=== PATIENT | male | born 1955 | race Caucasian/White ===

== ENCOUNTER 2018-10-10 09:58 | Inpatient (IN) | payer MEDICARE, MEDICAID ==
[2018-10-10 10:48] LABS: % BASOPHILS 0.9 % (0.0-2.0); % EOSINOPHILS 1.6 % (0.0-5.0); % LYMPHOCYTES 21.7 % (20.0-50.0); % MONOCYTES 10.9 % (2.0-10.0); % NEUTROPHILS 64.9 % (40.0-80.0); BASOPHILE ABSOLUTE 0.1 Th/cumm (0-0.2); EOSINOPHILE ABSOLUTE 0.1 Th/cmm (0.1-0.4); HEMATOCRIT 43.2 % (41.0-60); HEMOGLOBIN 14.1 gm/dL (12-16); LYMPHOCYTE ABSOLUTE 1.5 Th/cmm (1.5-3.0); MEAN CELL VOLUME 81.3 fl (80-99); MEAN CORPUSCULAR HEMOGLOBIN 26.4 pg (26.0-30.0); MEAN CORPUSCULAR HGB CONC 32.5 pg (28.0-36.0); MEAN PLATELET VOLUME 6.5 fl; MONOCYTE ABSOLUTE 0.8 Th/cmm (0.3-1.0); NEUTROPHILE ABSOLUTE 4.4 Th/cmm (1.8-8.0); PLATELET COUNT 187 Th/cmm (150-400); RED BLOOD COUNT 5.32 Mil/cmm (4.30-5.70); RED CELL DISTRIBUTION WIDTH 15.9 % (11.5-20.0); WHITE BLOOD COUNT 6.9 Th/cmm (4.8-10.8)
[2018-10-10 11:03] LABS: ALB/GLOB RATIO 1.5 (1.0-1.8); ALBUMIN 3.8 gm/dL (4.2-5.5); ALKALINE PHOSPHATASE 91 U/L (34-104); ANION GAP 7.8 (7.0-16.0); BILIRUBIN,TOTAL 0.4 mg/dL (0.3-1.0); BUN - UREA NITROGEN 12 mg/dL (7-25); CALCIUM SERUM 8.8 mg/dL (8.6-10.3); CARBON DIOXIDE 33.7 mEq/L (21.0-31.0); CHLORIDE 84 mEq/L (98-107); CREATININE - SERUM 0.5 mg/dL (0.7-1.3); GFR AFRICAN-AMERICAN > 60.0 ml/min (>90); GFR NON AFRICAN-AMERICAN > 60.0 ml/min; GLUCOSE 111 mg/dL (70-105); POTASSIUM SERUM 4.5 mEq/L (3.5-5.1); SGOT 15 U/L (13-39); SGPT/ALT 12 U/L (7-52); TOTAL PROTEIN,SERUM 6.4 gm/dL (6.0-8.3)
[2018-10-10 11:14] LABS: SODIUM SERUM 121 mEq/L (136-145)
--- NOTE | 2018-10-10 11:48 | ED Physician Chart ---
ED Chief Complaint/HPI - Patient Information Date Seen:: 10/10/18 Time Seen:: 10:41 Chief Complaint:: high blood presssure History of Present Illness:: THIS IS A 63 YO MALE WHO WAS BROUGHT HERE BY EMS FOR TREATMENT AND EVALUATION OF HIS BLOOD PRESSURE. THE STATES THAT HE ALSO HAS A HISTORY OF SEIZURES AND IS ON KEPPER. HE DENIES HEART DISEASE AND DIABETES BUT HAS CHRONIC RIGHT KNEE PAIN. HE ALSO HAS A PROBLEM WITH OBESITY. Allergies:: Allergies Allergy/AdvReac Type Severity Reaction Status Date / Time dextromethorphan Allergy Verified 10/10/18 10:31 Vitals:: Vital Signs - 8 hr 10/10/18 10:31 Temp 98.0 F HR 62 RR 18 BP 137/61 O2 Sat % 91 Historian:: Patient Review:: Nurse's Note Reviewed, Old Chart Reviewed ED Review of Systems - Review of Systems General/Constitutional: No fever, No chills, No weight loss, No weakness, No diaphoresis, No edema, No loss of appetite Skin: No skin lesions, No rash, No bruising Head: No headache, No light-headedness Eyes: No loss of vision, No pain, No diplopia ENT: No earache, No nasal drainage, No sore throat, No tinnitus Neck: No neck pain, No swelling, No thyromegaly, No stiffness, No mass noted Cardio Vascular: No chest pain, No palpitations, No PND, No orthopnea, No edema Pulmonary: No SOB, No cough, No sputum, No wheezing GI: No nausea, No vomiting, No diarrhea, No pain, No melena, No hematochezia, No constipation, No hematemesis G/U: No dysuria, No frequency, No hematuria Musculoskeletal: Bone or joint pain (RIGHT KNEE PAIN), No back pain, No muscle pain Endocrine: No polyuria, No polydipsia Psychiatric: No prior psych history, No depression, No anxiety, No suicidal ideation Hematopoietic: No bruising, No lymphadenopathy Allergic/Immuno: No urticaria, No angioedema Neurological: No syncope, No focal symptoms, No weakness, No paresthesia, No headache, No seizure, No dizziness, No confusion, No vertigo ED Past Medical History - Past Medical History Obtainable: Yes Past Medical History: HTN, Seizures, Arthritis Family History: Heart disease, Diabetes Melitus Social History: Non Smoker, No Alcohol, Illicit Drug Use, Care Facility Surgical History: None Psychiatricy History: None Medication: Reviewed Family Medical History - Family Member Mother History Unknown: Yes Ethnicity: Living Status: Still Living Hx Family Hypertension: Yes Hx Family Diabetes: Yes ED Physical Exam - Physical Examination General/Constitutional: Awake, Well-developed, well-nourished, Alert, No distress, GCS 15, Non-toxic appearing, Ambulatory Other Gen/Cons comments:: OBESITY Head: Atraumatic Eyes: Lids, conjuctiva normal, PERRL, EOMI Skin: Nl inspection, No rash, No skin lesions, No ecchymosis, Well hydrated, No lymphadenopathy ENMT: External ears, nose nl, Nasal exam nl, Lips, teeth, gums nl Neck: Nontender, Full ROM w/o pain, No JVD, No nuchal rigidity, No bruit, No mass, No stridor Respiratory: Nl effort/Exclusion, Clear to Auscultation, No Wheeze/Rhonchi/Rales Cardio Vascular: RRR, No murmur, gallop, rubs, NL S1 S2 GI: No tenderness/rebounding/guarding, No organomegaly, No hernia, Normal BS's, Nondistended, No mass/bruits, No McBurney tenderness : No CVA tenderness Extremities: No tenderness or effusion (RIGHT KNEE IS SWOLLEN AND TENDER WITH 2 + EDEMA), Full ROM, normal strength in all extremities, No edema, Normal digits & nails Neuro/Psych: Alert/oriented, DTR's symmetric, Normal sensory exam, Normal motor strength, Judgement/insight normal, Mood normal, Normal gait, No focal deficits Misc: Normal back, No paraspinal tenderness ED Labs/Radiology/EKG Results - Lab Results Results: Laboratory Tests 10/10/18 10/10/18 10/10/18 10:20 10:20 10:20 WBC 6.9 RBC 5.32 Hgb 14.1 Hct 43.2 MCV 81.3 MCH 26.4 MCHC Differential 32.5 RDW 15.9 Plt Count 187 MPV 6.5 Neutrophils % 64.9 Lymphocytes % 21.7 Monocytes % 10.9 H Eosinophils % 1.6 Basophils % 0.9 Sodium 121 L D Potassium 4.5 Chloride 84 L Carbon Dioxide 33.7 H Anion Gap 7.8 BUN 12 Creatinine 0.5 L Est GFR ( Amer) > 60.0 Est GFR (Non-Af Amer) > 60.0 BUN/Creatinine Ratio 24.0 Glucose 111 H Calcium 8.8 Total Bilirubin 0.4 AST 15 ALT 12 Alkaline Phosphatase 91 Troponin I 0.01 Total Protein 6.4 Albumin 3.8 L Globulin 2.6 Albumin/Globulin Ratio 1.5 Valproic Acid 10/10/18 10:59 WBC RBC Hgb Hct MCV MCH MCHC Differential RDW Plt Count MPV Neutrophils % Lymphocytes % Monocytes % Eosinophils % Basophils % Sodium Potassium Chloride Carbon Dioxide Anion Gap BUN Creatinine Est GFR ( Amer) Est GFR (Non-Af Amer) BUN/Creatinine Ratio Glucose Calcium Total Bilirubin AST ALT Alkaline Phosphatase Troponin I Total Protein Albumin Globulin Albumin/Globulin Ratio Valproic Acid 43.0 L ED Assessment - Assessment General Assessment: HYPERTENSION RIGHT KNEE ARTHRITIS DRUG ABUSE OPIATES ED Septic Shock - . Is Septic Shock (SBP<90, OR Lactate>4 mmol\L) present?: No - <6hrs of presentation: Vital Signs: Vital Signs - 8 hr 10/10/18 10:31 Temp 98.0 F HR 62 RR 18 BP 137/61 O2 Sat % 91 ED Reassessment (Disposition) - Reassessment Reassessment Condition:: Improved - Diagnosis Diagnosis:: DEHYDRATION SEIZURES DISORDER HYPERTENSION CHRONIC RIGHT KNEE PAIN DRUG ABUSE (OPIATES) - Patient Disposition Discharge/Transfer:: Acute Care w/in this hosp Admitting Medical Physician:: Dannie Waldrop Condition at Disposition:: Unchanged
[2018-10-10] MEDS ORDERED: Sodium Chloride 0.9% 1,000 ML IV ONE (12:18)
[2018-10-10] MEDS ORDERED: Magnesium Hydroxide (MOM) 30 mL UDC PO PRN (13:38)
[2018-10-10] MEDS ORDERED: Sodium Chloride 0.9% 1,000 ML IV SCH (13:45)
[2018-10-10] MEDS ORDERED: Pneumococcal Vaccine 0.5 mL Vial IM ONE (15:52)
[2018-10-10] MEDS ORDERED: Sodium Chloride 3% 200 ML IV ONE (19:00)
[2018-10-10] MEDS: Budesonide 0.5 Mg/2 mL Ud HHN SCH (19:08)
[2018-10-10] MEDS: Albuterol/Ipratropium Neb 3 ML AERS HHN SCH (19:08)
[2018-10-10 19:28] LABS: ALLEN TEST Positive
[2018-10-10] MEDS ORDERED: Sodium Chloride 3% 500 ML IV ONE ×2 (19:41→19:42)
--- NOTE | 2018-10-10 20:24 | History & Physical ---
ADMIT DATE: PATIENT IDENTIFICATION: A 63-year-old male. CHIEF COMPLAINT: Altered mental status and elevated blood pressure. HISTORY OF PRESENT ILLNESS: A 63-year-old [place] male resident of [facility] with history of hypertension, obstructive sleep apnea, COPD, chronic pain syndrome and DJD, brought into the Emergency Room for evaluation of elevated blood pressure associated with increasing confusion. The patient was worked up in the Emergency Room and noted to have hyponatremia. The patient is advised to be admitted in the hospital for further treatment. PAST MEDICAL HISTORY: Remarkable for: 1. COPD. 2. Hypertension. 3. Obesity. 4. DJD. 5. Chronic pain syndrome. 6. Obstructive sleep apnea. 7. Psychotic disorder. MEDICATIONS AT HOME: The patient is taking multiple medications, which includes: 1. Cymbalta. 2. Depakote. 3. Tylenol. 4. MS Contin. 5. Percocet. 6. Colace. 7. Carvedilol. 8. Baclofen. 9. Nifedipine 10. Losartan. 12. Trileptal. 13. Flomax. ALLERGIES: THE PATIENT IS ALLERGIC TO DEXTROMETHORPHAN. SOCIAL HISTORY: The patient resides in [facility]. The patient has a history of smoking cigarette. No alcohol or drug use. FAMILY MEDICAL HISTORY: Remarkable for hypertension. REVIEW OF SYSTEMS: The patient denies any chest pain, shortness of breath, palpitations, dizziness, headache, diarrhea, dysuria, hematuria, hematochezia, or melena. The patient is very fatigued and tired. The patient has poor p.o. intake. PHYSICAL EXAMINATION: GENERAL: Alert, awake, lying in the bed. VITAL SIGNS: Temperature 98.6, pulse 63, respiratory rate 18, blood pressure 140/70. HEENT: Normocephalic, atraumatic. Extraocular muscles are intact. Tongue was pink and coated. Poor dentition noted. No oral lesions, no exudate. No sinus tenderness. External auditory canal and tympanic membranes are well visualized. NECK: Supple, no JVD, no hepatojugular reflex. No lymphadenopathy, thyromegaly, or carotid bruit. HEART: Both heart sounds are regular. No S3, no S4. CHEST AND LUNGS: Equal in expansion with expiratory wheezing. ABDOMEN: Soft. No guarding, no rigidity. Liver and spleen not palpable. No palpable mass. EXTREMITIES: No edema. Peripheral pulses are +1. No calf tenderness. NEUROLOGIC: Alert, awake, follows commands. Decreased power throughout the upper and lower extremity. AVAILABLE DIAGNOSTIC DATA: White count of 6.9, hemoglobin of 14.1, platelet count of 187. Potassium 4.5, sodium 121, chloride 84, CO2 of 33.7, BUN and creatinine of 12.9 and 0.5. Uric acid is 3.7, ammonia of 102. Albumin of 3.8. Valproic acid is 43. CLINICAL IMPRESSION: 1. Hyponatremia, most likely from SIADH. 2. Elevated ammonia. 3. Altered mental status secondary to CO2 narcosis and possible medication related. 4. Hypertension. 5. Obesity. 6. Obstructive sleep apnea. 7. Degenerative joint disease. 8. Chronic pain syndrome. 9. Debility. PLAN: 1. Admit this patient to telemetry med/surg floor. 2. Workup for hyponatremia. 3. IV fluid for now. 4. Follow Nephrology recommendation. 5. Lactulose. 6. Appropriate home medicine reconciliation. 7. Pain management. 8. General nursing care. 9. Follow lab. 10. Follow validation consultant recommendation. 11. Care plan reviewed and discussed with staff. JOB# [id number]
--- NOTE | 2018-10-10 23:50 | Consultation ---
DATE OF CONSULTATION: 10/10/2018 PATIENT'S AGE: 63 years. SEX: Male. RACE: . HISTORY OF PRESENT ILLNESS: This patient does have multiple medical problems, which include but not limited to: 1. Morbid obesity. 2. Chronic obstructive pulmonary disease. 3. Sleep apnea. 4. Seizure disorder. 5. The patient had earlier hypertension in the [facility]. At present, the patient has hyponatremia of 121. Try to evaluate the patient and try to wake him up. Could not shook him for about 5 minutes; he seems to be completely out. Discussion with Dr. Waldrop also states that the patient has a chronic pain syndrome and takes significant amount of narcotic medications, which might have been that he may be overdose at present time. The patient's vitals: The patient's breathing at a rate of 12-14-18. The patient's blood pressure 128/80 mmHg, heart rate about 60 per minute. I am afraid that the patient may stop breathing at any time, may happen or may not. We do not have other monitoring device on the regular floor out here. Chemistries evaluated. Hemoglobin 14.1 gram percent. WBC 6.9 thousand, platelet count 187, normal differential. Chemistries reveal sodium of 121, potassium 4.5, chloride 84, CO2 content 33.7, BUN 12, creatinine 0.5, BUN 24, uric acid level 3.7, calcium 8.8, total bilirubin 0.4. Liver enzymes essentially normal, albumin 3.8, globulin 2.6, valproic acid level 43. No screening for the drugs has been done here. Considering that the recommendations have been to: 1. At least 24 hours move to the ICU until he wakes up a little bit. 2. Get an ABG done. 3. A 3% saline 200 mL over 6 hours. Lasix one time only 20 mg IV push. Uric acid level has been already done and repeat his CBC and CMP tomorrow. Once the patient is arousable, then may be more evaluation can be done. Otherwise, the diagnosis remains the same as a history given. JOB# [id number]
[2018-10-11 00:56] LABS: BENZODIAZEPINES QUAL URINE POSITIVE (NEGATIVE); OPIATES (MORPHINE) QUAL. URINE POSITIVE (NEGATIVE)
[2018-10-11 00:57] LABS: AMPHETAMINE URINE NEGATIVE (NEGATIVE); BARBITURATES URINE NEGATIVE (NEGATIVE); CANNABINOID THC NEGATIVE (NEGATIVE); COCAINE METABOLITE QUAL URINE NEGATIVE (NEGATIVE); METHADONE URINE NEGATIVE (NEGATIVE); METHAMPHETAMINES QUAL URINE NEGATIVE (NEGATIVE); PHENCYCLIDINE (PCP) URINE NEGATIVE (NEGATIVE); TRICYCLICS (TCA) QUAL. URINE NEGATIVE (NEGATIVE)
[2018-10-11] MEDS: Albuterol/Ipratropium Neb 3 ML AERS HHN SCH ×4 (01:49→19:27)
[2018-10-11 06:30] LABS: URINE SOURCE CLEAN C
[2018-10-11 06:46] LABS: % BASOPHILS 0.3 % (0.0-2.0); % EOSINOPHILS 0.7 % (0.0-5.0); % LYMPHOCYTES 11.2 % (20.0-50.0); % MONOCYTES 8.7 % (2.0-10.0); % NEUTROPHILS 79.1 % (40.0-80.0); EOSINOPHILE ABSOLUTE 0.1 Th/cmm (0.1-0.4); HEMOGLOBIN 14.2 gm/dL (12-16); LYMPHOCYTE ABSOLUTE 0.9 Th/cmm (1.5-3.0); MEAN CELL VOLUME 81.1 fl (80-99); MEAN CORPUSCULAR HEMOGLOBIN 26.7 pg (26.0-30.0); MEAN CORPUSCULAR HGB CONC 32.9 pg (28.0-36.0); MEAN PLATELET VOLUME 6.6 fl; MONOCYTE ABSOLUTE 0.7 Th/cmm (0.3-1.0); NEUTROPHILE ABSOLUTE 6.5 Th/cmm (1.8-8.0); PLATELET COUNT 169 Th/cmm (150-400); RED CELL DISTRIBUTION WIDTH 16.5 % (11.5-20.0); WHITE BLOOD COUNT 8.2 Th/cmm (4.8-10.8)
[2018-10-11 06:48] LABS: URINE BILIRUBIN NEGATIVE (NEGATIVE); URINE BLOOD NEGATIVE (NEGATIVE); URINE GLUCOSE (UA) NEGATIVE (NEGATIVE); URINE KETONE NEGATIVE (NEGATIVE); URINE LEUKOCYTE ESTERASE NEGATIVE (NEGATIVE); URINE NITRATE NEGATIVE (NEGATIVE); URINE PH 6.5 (4.6 - 8.0); URINE PROTEIN NEGATIVE (NEGATIVE); URINE UROBILINOGEN 0.2 E.U./dL (0.2 - 1.0)
[2018-10-11 06:50] LABS: URINE COLOR PALE YELLOW
[2018-10-11 06:51] LABS: URINE CLARITY CLEAR (CLEAR)
[2018-10-11] MEDS: Budesonide 0.5 Mg/2 mL Ud HHN SCH ×2 (07:11→19:27)
[2018-10-11 07:16] LABS: ALB/GLOB RATIO 1.4 (1.0-1.8); ALBUMIN 3.5 gm/dL (4.2-5.5); ALKALINE PHOSPHATASE 91 U/L (34-104); ANION GAP 8.5 (7.0-16.0); BILIRUBIN,TOTAL 0.3 mg/dL (0.3-1.0); BUN - UREA NITROGEN 9 mg/dL (7-25); CALCIUM SERUM 8.6 mg/dL (8.6-10.3); CARBON DIOXIDE 34.8 mEq/L (21.0-31.0); CHLORIDE 89 mEq/L (98-107); CHOLESTEROL 137 mg/dL (<200); CREATININE - SERUM 0.5 mg/dL (0.7-1.3); GFR AFRICAN-AMERICAN > 60.0 ml/min (>90); GFR NON AFRICAN-AMERICAN > 60.0 ml/min; GLUCOSE 103 mg/dL (70-105); HDL -HIGH DENSITY LIPOPROTEIN 41 mg/dL (23-92); POTASSIUM SERUM 4.3 mEq/L (3.5-5.1); SGOT 12 U/L (13-39); SGPT/ALT 9 U/L (7-52); SODIUM SERUM 128 mEq/L (136-145); TOTAL PROTEIN,SERUM 6.1 gm/dL (6.0-8.3); TRIGLYCERIDES 94 mg/dL (<150); URIC ACID 4.1 mg/dL (4.4-7.6)
[2018-10-11] MEDS: Pantoprazole 40 mg EC Tab PO SCH (07:36)
[2018-10-11 08:26] LABS: pH 7.29 (7.35-7.45)
[2018-10-11 08:27] LABS: ALLEN TEST Y
[2018-10-11] MEDS ORDERED: Influenza Vaccine (5 yr & older) 0.5 ml Syr IM ONE (09:00)
[2018-10-11] MEDS ORDERED: Pneumococcal Vaccine 0.5 mL Vial IM ONE (09:00)
--- NOTE | 2018-10-11 10:04 | Diagnostic Imaging Report ---
Portable chest x-ray Time: 138 History: Allowing for portable technique the heart size enlarged. No focal pulmonary parenchymal processes. No hilar or mediastinal abnormalities. Impression: No acute abnormalities.
[2018-10-11] MEDS ORDERED: Sodium Chloride 0.9% 1,000 ML IV SCH (11:30)
[2018-10-11] MEDS: D5-0.9%NS 1,000 ML IV SCH (12:20)
--- NOTE | 2018-10-11 16:55 | Consultation ---
DATE OF CONSULTATION: 10/11/2018 PULMONARY/CRITICAL CARE CONSULTATION NOTE REASON FOR CONSULTATION: Altered state of mind with shortness of breath, questionable seizure. CONSULT NOTE: This is a 63-year-old gentleman who has been disabled from a chronic back pain as well as a knee joint, has been living in a local convalescent home, requiring to have chronic pain management. The patient was brought in up here with altered state of mind and also shortness of breath. Subsequently, the patient was increasingly confused and subsequently the patient was seen in the Emergency Room where the patient required active treatment because of respiratory/liver problems. Subsequently, the patient was admitted. The patient does smoke, does complain coughing, some wheezing, some chest discomfort, has quit smoking many years ago, but he started back again. Denies of any headache, denied of any shortness of breath, etc. Denied of any pleuritic chest pain or hemoptysis. PAST MEDICAL HISTORY: COPD, hypertension, obesity, chronic pain syndrome, obstructive sleep apnea syndrome, multiple psychiatric illness. MEDICATIONS: Multiple including Cymbalta, Depakote, MS Contin, Percocet, Carvedilol. ALLERGIES: ALLERGIC TO DEXTROMETHORPHAN. PAST SURGICAL HISTORY: Some hernia surgery. PHYSICAL EXAMINATION: GENERAL: This is a heavy set, middle-aged looking gentleman, awake, alert, and oriented, currently trouble talking through the BiPAP, not in respiratory distress on exam. VITAL SIGNS: Temperature is 96.8, blood pressure 116/73. The patient is afebrile, currently on a BiPAP at 55% of oxygen. HEENT: Head is essentially unremarkable. Pupils appear to be equal and reacting to light. Conjunctivae are pink. Sclerae are white. Oral cavity, limited exam, but small oropharyngeal opening. NECK: No nodes in the neck could be palpated. CHEST: Shows scattered wheezing with diminished air entry. HEART: Regular, distant. ABDOMEN: Soft, nontender. EXTREMITIES: Shows no peripheral edema. LABORATORY DATA: Current laboratory studies, white count is 8.2. The patient's ABG shows compensated respiratory acidemia earlier. Subsequently, pCO2 went high this morning with a pO2 of 85 and electrolytes shows sodium is 128 and otherwise essentially unremarkable. Ammonia is 100. IMPRESSION: 1. The patient has acute respiratory failure. 2. Question hepatic failure versus related to the valproic acid. 3. Severe obstructive sleep apnea syndrome. 4. Chronic pain syndrome. PLANS AND SUGGESTIONS: We will go ahead with aggressive respiratory care, inhalation treatment, bronchodilator treatment, inhaled steroid. We will give systemic starting for a few days, question as to we should stop Depakote because of significant elevation of ammonia level. I will discuss with Dr. Waldrop and in the meantime, follow through repeat blood gasses as well as a chest x-ray and go from there. JOB# [id number]
[2018-10-11] MEDS: methylPREDNISolone SS 40 mg Vial IVP SCH (18:27)
[2018-10-11] MEDS: Lactulose 10 Gm/15 mL 30mL UDC PO SCH (20:21)
--- NOTE | 2018-10-11 20:56 | Progress Notes ---
DATE: 10/11/2018 SUBJECTIVE: The patient seen and examined. The patient toe was transferred to ICU for altered mental status. Workup did reveal the patient had CO2 narcosis. The patient was placed on BiPAP and sodium was corrected with 3% sodium chloride drip. The patient is more alert and awake. Ammonia level was reported, which was corrected with lactulose as well. The patient is more alert and awake. The patient currently denies any chest pain, still hypoxic, currently on BiPAP. PHYSICAL EXAMINATION: VITAL SIGNS: Temperature 96.8, pulse 70, respiratory rate is 18, blood pressure 130/58. HEENT: No facial asymmetry. NECK: Supple, no JVD. HEART: Regular. CHEST AND LUNGS: Equal in expansion, expiratory wheezing throughout. ABDOMEN: Soft. No guarding, no rigidity. Liver, spleen palpable. No palpable mass. EXTREMITIES: No edema. NEUROLOGIC: Alert, awake, follows command. CLINICAL IMPRESSION: 1. Altered mental status secondary to metabolic encephalopathy associated with hypoxic encephalopathy. 2. Acute on chronic respiratory failure, currently on BiPAP. 3. Hyponatremia. 4. Elevated ammonia secondary long-term Depakote use. 5. Hypertension. 6. Obesity. 7. Obstructive sleep apnea. 8. Seizure disorder. 9. Chronic pain syndrome. 10. Gastroesophageal reflux disease. LABORATORY DATA: White count of 8.2, hemoglobin 14.2, platelet count of 169, pH of 7.29, pCO2 of 86, pO2 of 85, O2 sat 95%. Sodium 128, potassium 4.3, chloride 89, CO2 34.8, BUN and creatinine is 9 and 0.5, ammonia of 100. Urinalysis is negative. PLAN: 1. The patient was given D5 normal saline at 50 mL an hour. 2. BiPAP. 3. Oxygen. 4. Nebulizer treatment. 5. Lactulose. 6. General nursing care. 7. Critical care nursing. 8. Pulmonary followup. 9. Symptoms management. 10. Medication management. 11. We will follow the consult recommendation. 12. Care plan reviewed and discussed with RN. JOB# [id number]
[2018-10-12] MEDS: methylPREDNISolone SS 40 mg Vial IVP SCH ×5 (01:00→23:21)
[2018-10-12 05:39] LABS: EOSINOPHILE ABSOLUTE 0.3 Th/cmm (0.1-0.4); HEMATOCRIT 42.1 % (41.0-60); HEMOGLOBIN 14.1 gm/dL (12-16); LYMPHOCYTE ABSOLUTE 0.6 Th/cmm (1.5-3.0); MEAN CELL VOLUME 81.7 fl (80-99); MEAN CORPUSCULAR HEMOGLOBIN 27.3 pg (26.0-30.0); MEAN CORPUSCULAR HGB CONC 33.4 pg (28.0-36.0); MEAN PLATELET VOLUME 7.9 fl; MONOCYTE ABSOLUTE 0.1 Th/cmm (0.3-1.0); NEUTROPHILE ABSOLUTE 10.1 Th/cmm (1.8-8.0); PLATELET COUNT 227 Th/cmm (150-400); RED BLOOD COUNT 5.16 Mil/cmm (4.30-5.70); RED CELL DISTRIBUTION WIDTH 16.2 % (11.5-20.0); WHITE BLOOD COUNT 11.1 Th/cmm (4.8-10.8)
[2018-10-12] MEDS: Pantoprazole 40 mg EC Tab PO SCH (06:40)
[2018-10-12] MEDS: Albuterol/Ipratropium Neb 3 ML AERS HHN SCH ×4 (06:57→18:58)
[2018-10-12] MEDS: Budesonide 0.5 Mg/2 mL Ud HHN SCH ×2 (07:13→18:58)
[2018-10-12] MEDS: Lactulose 10 Gm/15 mL 30mL UDC PO SCH ×3 (08:47→20:39)
--- NOTE | 2018-10-12 08:48 | Diagnostic Imaging Report ---
CHEST X-RAY: AP view INDICATION: Abnormal ABG COMPARISON: 10/10/2018 FINDINGS: The exam is limited due to body habitus. Small bilateral effusions are noted. Cardiomegaly is noted. IMPRESSION: Small bilateral pleural effusions. Pneumonia of the left lung base cannot be excluded. Cardiomegaly.
[2018-10-12] MEDS: D5-0.9%NS 1,000 ML IV SCH (08:49)
--- NOTE | 2018-10-12 08:55 | Diagnostic Imaging Report ---
CHEST X-RAY: AP view INDICATION: Shortness of breath COMPARISON: 10/11/2018 FINDINGS: Small bilateral effusions are noted. Cardiomegaly is noted. IMPRESSION: Persistent small bilateral effusions. Pneumonia of the lung bases cannot be excluded. Cardiomegaly.
[2018-10-12 09:25] LABS: ALB/GLOB RATIO 1.4 (1.0-1.8); ALBUMIN 3.7 gm/dL (4.2-5.5); ALKALINE PHOSPHATASE 86 U/L (34-104); BILIRUBIN,TOTAL 0.4 mg/dL (0.3-1.0); BUN - UREA NITROGEN 10 mg/dL (7-25); CALCIUM SERUM 9.2 mg/dL (8.6-10.3); CARBON DIOXIDE 30.5 mEq/L (21.0-31.0); CHLORIDE 91 mEq/L (98-107); CREATININE - SERUM 0.5 mg/dL (0.7-1.3); GFR AFRICAN-AMERICAN > 60.0 ml/min (>90); GFR NON AFRICAN-AMERICAN > 60.0 ml/min; GLUCOSE 121 mg/dL (70-105); POTASSIUM SERUM 4.5 mEq/L (3.5-5.1); SGOT 13 U/L (13-39); SGPT/ALT 9 U/L (7-52); SODIUM SERUM 130 mEq/L (136-145); TOTAL PROTEIN,SERUM 6.4 gm/dL (6.0-8.3)
[2018-10-12 09:39] LABS: BILIRUBIN,DIRECT 0.09 mg/dL (0.0-0.2)
[2018-10-12 09:57] LABS: pH 7.47 (7.35-7.45)
[2018-10-12 09:59] LABS: ALLEN TEST pos
[2018-10-12 10:20] LABS: NEUTROPHILS 91 % (40-80)
[2018-10-12 10:21] LABS: BAND NEUTROPHILE 2 % (0-10); BASOPHIL 0 % (0-3); EOSINOPHIL 0 % (0-5); LYMPHOCYTE 5 % (20-50); MONOCYTE 2 % (2-10)
[2018-10-12] MEDS: Azithromycin 500 MG in Sodium Chloride 0.9% 250 ML IV SCH (10:22)
[2018-10-12] MEDS: Morphine Sulfate 2 mg/mL 1mL Syr IVP PRN (10:51)
--- NOTE | 2018-10-12 14:48 | Consultation ---
DATE OF CONSULTATION: 10/12/2018 PROBLEM LIST: 1. Acute on chronic respiratory failure. 2. Chronic obstructive pulmonary disease. 3. Questionable hepatic ratio and increased ammonia ____ valproic acid. SYMPTOMS: Nil. The patient is feeling much better, offers no specific new symptoms. Currently on a BiPAP. PHYSICAL EXAMINATION: VITAL SIGNS: Temperature is 96.7, blood pressure 150/60, saturation is 96-97 on 40% on BiPAP. NECK: Veins not visualized. CHEST: Shows diminished air entry with occasional rhonchi. HEART: Regular. ABDOMEN: Soft and nontender. EXTREMITIES: Shows slight trace of peripheral edema with some darkness in the left leg. LABORATORY DATA: White count is 11,000, hemoglobin 14.1. The patient's ABG currently shows pCO2 of 48, pO2 is 57, question venous blood on 40% of oxygen and electrolytes are okay with sodium 130 and sugar is 121, ammonia is 64, significantly improved than before. IMPRESSION: The patient has improved respiratory status with acute respiratory failure, etc. PLANS AND SUGGESTIONS: We will try nasal O2 daytime. Continue BiPAP. We will give low dose of diuretics and see how he does in the next 24-48 hours and go from there. JOB# [id number]
--- NOTE | 2018-10-13 03:27 | Progress Notes ---
DATE: 10/12/2018 SUBJECTIVE: The patient seen and examined. The patient is lying in the bed. The patient is more alert and awake. The patient stated that he has polydipsia and polyuria. OBJECTIVE: GENERAL: The patient otherwise denies any chest pain or shortness of breath, currently on BiPAP. VITAL SIGNS: Temperature 97.7, pulse is 90, respiratory rate is 18, blood pressure 160/82. HEENT: No facial asymmetry. NECK: Supple, no JVD. HEART: Regular. CHEST: Lung equal in expansion, no expiratory wheezing. ABDOMEN: Soft. No guarding or rigidity. Bowel sounds present. No palpable mass. EXTREMITIES: No edema. AVAILABLE DIAGNOSTIC DATA: White count of 11.1, hemoglobin 14.1, platelet count 227. Sodium 130, potassium 4.5, chloride 91, CO2 of 30.5, BUN and creatinine is 10 and 0.5, ammonia of 64, ALT/AST is 9 and 30 respectively. Chest x-ray, bilateral infiltrate. CLINICAL IMPRESSION: 1. Acute on chronic respiratory failure, currently on BiPAP. 2. Bilateral pneumonia. 3. Altered mental status secondary metabolic and hypoxic encephalopathy. 4. Hyponatremia, improved. 5. Degenerative joint disease. 6. Obesity. 7. Chronic pain syndrome. 8. Elevated ammonia level, improving as well. 9. Seizure disorder. PLAN: 1. Add Zithromax. 2. Oxygen. 3. BiPAP. 4. Nebulizer treatment. 5. IV steroid. 6. IV fluid. 7. General nursing care. 8. Cardiac monitoring. 9. Follow lab. 10. Follow consult recommendation. 11. Care plan will be discussed with staff. JOB# [id number]
[2018-10-13 05:12] LABS: % BASOPHILS 0.2 % (0.0-2.0); % EOSINOPHILS 0.4 % (0.0-5.0); % LYMPHOCYTES 9.8 % (20.0-50.0); % MONOCYTES 5.2 % (2.0-10.0); % NEUTROPHILS 84.4 % (40.0-80.0); HEMATOCRIT 41.5 % (41.0-60); HEMOGLOBIN 13.3 gm/dL (12-16); LYMPHOCYTE ABSOLUTE 1.2 Th/cmm (1.5-3.0); MEAN CELL VOLUME 82.1 fl (80-99); MEAN CORPUSCULAR HEMOGLOBIN 26.4 pg (26.0-30.0); MEAN CORPUSCULAR HGB CONC 32.1 pg (28.0-36.0); MEAN PLATELET VOLUME 7.1 fl; MONOCYTE ABSOLUTE 0.6 Th/cmm (0.3-1.0); NEUTROPHILE ABSOLUTE 10.5 Th/cmm (1.8-8.0); PLATELET COUNT 221 Th/cmm (150-400); RED BLOOD COUNT 5.05 Mil/cmm (4.30-5.70); RED CELL DISTRIBUTION WIDTH 16.3 % (11.5-20.0); WHITE BLOOD COUNT 12.3 Th/cmm (4.8-10.8)
[2018-10-13 06:14] LABS: ALB/GLOB RATIO 1.4 (1.0-1.8); ALBUMIN 3.5 gm/dL (4.2-5.5); ALKALINE PHOSPHATASE 79 U/L (34-104); ANION GAP 13.1 (7.0-16.0); BILIRUBIN,TOTAL 0.3 mg/dL (0.3-1.0); BUN - UREA NITROGEN 17 mg/dL (7-25); CALCIUM SERUM 9.2 mg/dL (8.6-10.3); CARBON DIOXIDE 30.6 mEq/L (21.0-31.0); CHLORIDE 91 mEq/L (98-107); CREATININE - SERUM 0.6 mg/dL (0.7-1.3); GFR AFRICAN-AMERICAN > 60.0 ml/min (>90); GFR NON AFRICAN-AMERICAN > 60.0 ml/min; GLUCOSE 147 mg/dL (70-105); POTASSIUM SERUM 3.7 mEq/L (3.5-5.1); SGOT 11 U/L (13-39); SGPT/ALT 10 U/L (7-52); SODIUM SERUM 131 mEq/L (136-145); TOTAL PROTEIN,SERUM 6.1 gm/dL (6.0-8.3)
[2018-10-13 06:18] LABS: BILIRUBIN,DIRECT 0.06 mg/dL (0.0-0.2)
[2018-10-13] MEDS: Pantoprazole 40 mg EC Tab PO SCH (06:34)
[2018-10-13] MEDS: methylPREDNISolone SS 40 mg Vial IVP SCH ×3 (06:35→17:51)
[2018-10-13] MEDS: Albuterol/Ipratropium Neb 3 ML AERS HHN SCH ×4 (07:29→19:06)
[2018-10-13] MEDS: Budesonide 0.5 Mg/2 mL Ud HHN SCH ×2 (07:29→19:06)
[2018-10-13] MEDS: Lactulose 10 Gm/15 mL 30mL UDC PO SCH ×3 (08:17→20:28)
[2018-10-13] MEDS: Guaifenesin DM 10 ML UDC PO PRN ×3 (08:37→20:30)
[2018-10-13 10:12] LABS: ALLEN TEST Positive; pH 7.47 (7.35-7.45)
[2018-10-13] MEDS: Azithromycin 500 MG in Sodium Chloride 0.9% 250 ML IV SCH (10:21)
--- NOTE | 2018-10-13 13:46 | General Progress Note ---
Subjective - Review of Systems Service Date: 10/13/18 Subjective: alert, verbal, not in distress Objective - Results Result Diagrams: 10/13/18 04:25 10/13/18 04:25 Recent Labs: Laboratory Last Values WBC 12.3 Th/cmm (4.8-10.8) H 10/13/18 04:25 RBC 5.05 Mil/cmm (4.30-5.70) 10/13/18 04:25 Hgb 13.3 gm/dL (12-16) 10/13/18 04:25 Hct 41.5 % (41.0-60) 10/13/18 04:25 MCV 82.1 fl (80-99) 10/13/18 04:25 MCH 26.4 pg (26.0-30.0) 10/13/18 04:25 MCHC Differential 32.1 pg (28.0-36.0) 10/13/18 04:25 RDW 16.3 % (11.5-20.0) 10/13/18 04:25 Plt Count 221 Th/cmm (150-400) 10/13/18 04:25 MPV 7.1 fl 10/13/18 04:25 Add Manual Diff YES 10/12/18 04:05 Neutrophils % 84.4 % (40.0-80.0) H 10/13/18 04:25 Band Neutrophils % 2 % (0-10) 10/12/18 04:05 Lymphocytes % 9.8 % (20.0-50.0) L 10/13/18 04:25 Monocytes % 5.2 % (2.0-10.0) 10/13/18 04:25 Eosinophils % 0.4 % (0.0-5.0) 10/13/18 04:25 Basophils % 0.2 % (0.0-2.0) 10/13/18 04:25 Neutrophils (Manual) 91 % (40-80) H 10/12/18 04:05 Lymphocytes 5 % (20-50) L 10/12/18 04:05 Monocytes 2 % (2-10) 10/12/18 04:05 Eosinophils 0 % (0-5) 10/12/18 04:05 Basophils 0 % (0-3) 10/12/18 04:05 Specimen Source Arterial 10/13/18 09:57 Sample Site Right Radial 10/13/18 09:57 pH 7.47 (7.35-7.45) H 10/13/18 09:57 pCO2 51.0 mmHg (35.0-45.0) H 10/13/18 09:57 pO2 62.0 mmHg (80.0-100.0) L 10/13/18 09:57 HCO3 33.9 mEq/L (20.0-26.0) H 10/13/18 09:57 Base Excess 11.6 mEq/L (-3.0-3.0) H 10/13/18 09:57 O2 Saturation 93.0 % (92.0-100.0) 10/13/18 09:57 Mahesh Test Positive 10/13/18 09:57 Vent Rate NA 10/13/18 09:57 Inspired O2 36 10/13/18 09:57 Tidal Volume NA 10/13/18 09:57 PEEP NA 10/13/18 09:57 Pressure (ins/psv/peep) NA 10/13/18 09:57 Critical Value LZHANG 10/13/18 09:57 Sodium 131 mEq/L (136-145) L 10/13/18 04:25 Potassium 3.7 mEq/L (3.5-5.1) 10/13/18 04:25 Chloride 91 mEq/L (98-107) L 10/13/18 04:25 Carbon Dioxide 30.6 mEq/L (21.0-31.0) 10/13/18 04:25 Anion Gap 13.1 (7.0-16.0) 10/13/18 04:25 BUN 17 mg/dL (7-25) 10/13/18 04:25 Creatinine 0.6 mg/dL (0.7-1.3) L 10/13/18 04:25 Est GFR ( Amer) > 60.0 ml/min (>90) 10/13/18 04:25 Est GFR (Non-Af Amer) > 60.0 ml/min 10/13/18 04:25 BUN/Creatinine Ratio 28.3 10/13/18 04:25 Glucose 147 mg/dL (70-105) H 10/13/18 04:25 Uric Acid 4.1 mg/dL (4.4-7.6) L 10/11/18 06:31 Calcium 9.2 mg/dL (8.6-10.3) 10/13/18 04:25 Magnesium 2.0 mg/dL (1.9-2.7) 10/12/18 04:05 Total Bilirubin 0.3 mg/dL (0.3-1.0) 10/13/18 04:25 Direct Bilirubin 0.06 mg/dL (0.0-0.2) 10/13/18 04:25 AST 11 U/L (13-39) L 10/13/18 04:25 ALT 10 U/L (7-52) 10/13/18 04:25 Alkaline Phosphatase 79 U/L (34-104) 10/13/18 04:25 Ammonia 64 umol/L (16-53) H 10/12/18 04:05 Troponin I 0.01 ng/mL (0.01-0.05) 10/10/18 10:20 Total Protein 6.1 gm/dL (6.0-8.3) 10/13/18 04:25 Albumin 3.5 gm/dL (4.2-5.5) L 10/13/18 04:25 Globulin 2.6 gm/dL 10/13/18 04:25 Albumin/Globulin Ratio 1.4 (1.0-1.8) 10/13/18 04:25 Triglycerides 94 mg/dL (<150) 10/11/18 06:31 Cholesterol 137 mg/dL (<200) 10/11/18 06:31 LDL Cholesterol Direct 87 mg/dL (75-193) 10/11/18 06:31 HDL Cholesterol 41 mg/dL (23-92) 10/11/18 06:31 TSH 0.56 uIU/ml (0.34-5.60) 10/10/18 10:20 Urine Source CLEAN C 10/11/18 06:28 Urine Color PALE YELLOW 10/11/18 06:28 Urine Clarity CLEAR (CLEAR) 10/11/18 06:28 Urine pH 6.5 (4.6 - 8.0) 10/11/18 06:28 Ur Specific [place] 1.010 (1.005-1.030) 10/11/18 06:28 Urine Protein NEGATIVE mg/dL (NEGATIVE) 10/11/18 06:28 Urine Glucose (UA) NEGATIVE mg/dL (NEGATIVE) 10/11/18 06:28 Urine Ketones NEGATIVE mg/dL (NEGATIVE) 10/11/18 06:28 Urine Blood NEGATIVE (NEGATIVE) 10/11/18 06:28 Urine Nitrate NEGATIVE (NEGATIVE) 10/11/18 06:28 Urine Bilirubin NEGATIVE (NEGATIVE) 10/11/18 06:28 Urine Urobilinogen 0.2 E.U./dL (0.2 - 1.0) 10/11/18 06:28 Ur Leukocyte Esterase NEGATIVE (NEGATIVE) 10/11/18 06:28 Ur Random Sodium 64 mmol/L 10/11/18 00:10 Urine Creatinine 26.0 mg/dl (39.0-259.0) L 10/11/18 00:10 Urine Opiates Screen POSITIVE (NEGATIVE) H 10/11/18 00:10 Urine Methadone Screen NEGATIVE (NEGATIVE) 10/11/18 00:10 Ur Barbiturates Screen NEGATIVE (NEGATIVE) 10/11/18 00:10 Valproic Acid 43.0 ug/mL (50.0-100.0) L 10/10/18 10:59 Ur Tricyclics Screen NEGATIVE (NEGATIVE) 10/11/18 00:10 Ur Phencyclidine Scrn NEGATIVE (NEGATIVE) 10/11/18 00:10 Amphetamines Screen NEGATIVE (NEGATIVE) 10/11/18 00:10 U Methamphetamines Scrn NEGATIVE (NEGATIVE) 10/11/18 00:10 U Benzodiazepines Scrn POSITIVE (NEGATIVE) H 10/11/18 00:10 U Cocaine Metab Screen NEGATIVE (NEGATIVE) 10/11/18 00:10 U Cannabinoids Screen NEGATIVE (NEGATIVE) 10/11/18 00:10 RPR NONREACTIVE (NONREACTIVE) 10/10/18 10:20 - Physical Exam Vitals and I&O: Vital Signs Temp 97.5 F 10/13/18 13:00 Pulse 21 10/13/18 13:00 Resp 84 10/13/18 13:00 BP 125/53 10/13/18 13:00 Pulse Ox 93 10/13/18 13:00 Intake & Output 10/12/18 10/13/18 12 18:59 06:59 18:59 Intake Total 5350 800 250 Output Total 3000 Balance 2350 800 250 Weight (lbs) 124.936 kg 124.965 kg Intake: Intake, IV Amount 1250 250 Azithromycin 500 mg In 250 250 Sodium Chloride 0.9% 250 ml @ 250 mls/hr IV Q24HR [facility] Rx#:[id number] D5-0.9%Ns 1,000 ml @ 50 1000 mls/hr IV .Q20H [facility] Rx#: [id number] Oral 4100 800 Output: Urine 3000 Other: # Voids 5 # Bowel Movements 0 6 Stool Characteristics Soft Soft Brown Brown Weight Source Bedscale Bedscale Active Medications: Current Medications Acetaminophen (Tylenol) 650 mg PO Q4H PRN PRN Reason: Mild Pain/Headache/T above 101 Stop: 12/09/18 13:37 Last Admin: 10/12/18 20:38 Dose: 650 mg Albuterol/Ipratropium (Duoneb Neb) 3 ml HHN [id number] [facility] Stop: 12/10/18 18:59 Last Admin: 10/13/18 10:22 Dose: 3 ml Baclofen (Lioresal) 10 mg PO TID [facility] Stop: 12/09/18 13:59 Last Admin: 10/13/18 13:08 Dose: 10 mg Budesonide (Pulmicort) 0.5 mg HHN BIDRT [facility] Stop: 12/10/18 18:59 Last Admin: 10/13/18 07:29 Dose: 0.5 mg Carvedilol (Coreg) 6.25 mg PO BID [facility] Stop: 12/09/18 16:59 Last Admin: 10/13/18 08:16 Dose: 6.25 mg Divalproex Sodium (Depakote Dr) 250 mg PO Q12H [facility]; Protocol Stop: 12/09/18 13:44 Last Admin: 10/13/18 13:08 Dose: 250 mg Docusate Sodium (Colace) 250 mg PO BID [facility] Stop: 12/09/18 16:59 Last Admin: 10/13/18 08:16 Dose: Not Given Duloxetine HCl (Cymbalta) 60 mg PO DAILY [facility] Stop: 12/10/18 08:59 Last Admin: 10/13/18 08:15 Dose: 60 mg Furosemide (Lasix) 40 mg IVP BID [facility] Stop: 12/11/18 16:59 Last Admin: 10/13/18 08:16 Dose: 40 mg Guaifenesin/Dextromethorphan (Robitussin Dm) 10 ml PO Q6HR PRN PRN Reason: Cough Stop: 12/11/18 18:03 Last Admin: 10/13/18 08:37 Dose: 10 ml Dextrose/Sodium Chloride (D5-0.9%Ns) 1,000 mls @ 50 mls/hr IV .Q20H [facility] Stop: 12/10/18 12:03 Last Admin: 10/12/18 08:49 Dose: 50 mls/hr Azithromycin 500 mg/ Sodium (Chloride) 250 mls @ 250 mls/hr IV Q24HR [facility] Stop: 12/11/18 10:59 Last Infusion: 10/13/18 11:25 Dose: Infused Lactulose (Cephulac) 30 gm PO TID [facility] Stop: 12/10/18 20:59 Last Admin: 10/13/18 13:09 Dose: 30 gm Latanoprost (Xalatan 0.005% Ophth Soln) 1 drop EACH EYE HS [facility] Stop: 12/09/18 20:59 Last Admin: 10/12/18 20:55 Dose: 1 drop Levetiracetam (Keppra) 1,000 mg PO BID [facility] Stop: 12/09/18 16:59 Last Admin: 10/13/18 08:16 Dose: 1,000 mg Losartan Potassium (Cozaar) 100 mg PO DAILY [facility] Stop: 12/09/18 13:59 Last Admin: 10/13/18 08:15 Dose: 100 mg Magnesium Hydroxide (Milk Of Magnesia) 30 ml PO HS PRN PRN Reason: Constipation Stop: 12/09/18 13:37 Methylprednisolone Sodium Succinate (Solu-Medrol) 40 mg IVP Q6HR [facility] Stop: 10/14/18 12:01 Last Admin: 10/13/18 11:13 Dose: 40 mg Morphine Sulfate (Morphine) 2 mg IVP Q4H PRN PRN Reason: Severe Pain Stop: 12/09/18 13:37 Last Admin: 10/12/18 10:51 Dose: 2 mg Morphine Sulfate (Ms-Contin) 30 mg PO BID@0000,1200 [facility] Stop: 12/10/18 00:00 Last Admin: 10/13/18 11:13 Dose: 30 mg Ondansetron HCl (Zofran) 4 mg IVP Q6H PRN PRN Reason: Nausea / Vomiting Stop: 12/09/18 13:37 Oxcarbazepine (Trileptal) 300 mg PO BID [facility]; Protocol Stop: 12/09/18 16:59 Last Admin: 10/13/18 08:15 Dose: 300 mg Pantoprazole Sodium (Protonix) 40 mg PO QDAC [facility] Stop: 12/10/18 07:29 Last Admin: 10/13/18 06:34 Dose: 40 mg Tamsulosin HCl (Flomax) 0.4 mg PO DAILY [facility] Stop: 12/09/18 13:44 Last Admin: 10/13/18 08:15 Dose: 0.4 mg General: Alert, No acute distress HEENT: Atraumatic, Mucous membr. 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 ALOC 2/2 Hyperammonemia, Pain/epileptic meds, C02 Narcosis Hypercapneic resp failure 2/2 COPD, meds, OHS/MARCE Morbid Obesity Epilepsy Chronic Pain Sx - Plan Plan: Lab - Result Diagrams 10/13/18 04:25 10/13/18 04:25 Current Medications Acetaminophen (Tylenol) 650 mg PO Q4H PRN PRN Reason: Mild Pain/Headache/T above 101 Stop: 12/09/18 13:37 Last Admin: 10/12/18 20:38 Dose: 650 mg Albuterol/Ipratropium (Duoneb Neb) 3 ml HHN [id number] [facility] Stop: 12/10/18 18:59 Last Admin: 10/13/18 10:22 Dose: 3 ml Baclofen (Lioresal) 10 mg PO TID [facility] Stop: 12/09/18 13:59 Last Admin: 10/13/18 13:08 Dose: 10 mg Budesonide (Pulmicort) 0.5 mg HHN BIDRT [facility] Stop: 12/10/18 18:59 Last Admin: 10/13/18 07:29 Dose: 0.5 mg Carvedilol (Coreg) 6.25 mg PO BID [facility] Stop: 12/09/18 16:59 Last Admin: 10/13/18 08:16 Dose: 6.25 mg Divalproex Sodium (Depakote Dr) 250 mg PO Q12H [facility]; Protocol Stop: 12/09/18 13:44 Last Admin: 10/13/18 13:08 Dose: 250 mg Docusate Sodium (Colace) 250 mg PO BID [facility] Stop: 12/09/18 16:59 Last Admin: 10/13/18 08:16 Dose: Not Given Duloxetine HCl (Cymbalta) 60 mg PO DAILY [facility] Stop: 12/10/18 08:59 Last Admin: 10/13/18 08:15 Dose: 60 mg Furosemide (Lasix) 40 mg IVP BID [facility] Stop: 12/11/18 16:59 Last Admin: 10/13/18 08:16 Dose: 40 mg Guaifenesin/Dextromethorphan (Robitussin Dm) 10 ml PO Q6HR PRN PRN Reason: Cough Stop: 12/11/18 18:03 Last Admin: 10/13/18 08:37 Dose: 10 ml Dextrose/Sodium Chloride (D5-0.9%Ns) 1,000 mls @ 50 mls/hr IV .Q20H [facility] Stop: 12/10/18 12:03 Last Admin: 10/12/18 08:49 Dose: 50 mls/hr Azithromycin 500 mg/ Sodium (Chloride) 250 mls @ 250 mls/hr IV Q24HR [facility] Stop: 12/11/18 10:59 Last Infusion: 10/13/18 11:25 Dose: Infused Lactulose (Cephulac) 30 gm PO TID [facility] Stop: 12/10/18 20:59 Last Admin: 10/13/18 13:09 Dose: 30 gm Latanoprost (Xalatan 0.005% Oph Soln) 1 drop EACH EYE HS [facility] Stop: 12/09/18 20:59 Last Admin: 10/12/18 20:55 Dose: 1 drop Levetiracetam (Keppra) 1,000 mg PO BID [facility] Stop: 12/09/18 16:59 Last Admin: 10/13/18 08:16 Dose: 1,000 mg Losartan Potassium (Cozaar) 100 mg PO DAILY [facility] Stop: 12/09/18 13:59 Last Admin: 10/13/18 08:15 Dose: 100 mg Magnesium Hydroxide (Milk Of Magnesia) 30 ml PO HS PRN PRN Reason: Constipation Stop: 12/09/18 13:37 Methylprednisolone Sodium Succinate (Solu-Medrol) 40 mg IVP Q6HR [facility] Stop: 10/14/18 12:01 Last Admin: 10/13/18 11:13 Dose: 40 mg Morphine Sulfate (Morphine) 2 mg IVP Q4H PRN PRN Reason: Severe Pain Stop: 12/09/18 13:37 Last Admin: 10/12/18 10:51 Dose: 2 mg Morphine Sulfate (Ms-Contin) 30 mg PO BID@0000,1200 [facility] Stop: 12/10/18 00:00 Last Admin: 10/13/18 11:13 Dose: 30 mg Ondansetron HCl (Zofran) 4 mg IVP Q6H PRN PRN Reason: Nausea / Vomiting Stop: 12/09/18 13:37 Oxcarbazepine (Trileptal) 300 mg PO BID [facility]; Protocol Stop: 12/09/18 16:59 Last Admin: 10/13/18 08:15 Dose: 300 mg Pantoprazole Sodium (Protonix) 40 mg PO QDAC [facility] Stop: 12/10/18 07:29 Last Admin: 10/13/18 06:34 Dose: 40 mg Tamsulosin HCl (Flomax) 0.4 mg PO DAILY [facility] Stop: 12/09/18 13:44 Last Admin: 10/13/18 08:15 Dose: 0.4 mg Lab - Result Diagrams 10/13/18 04:25 10/13/18 04:25 Na up to 131 DC Lasix, IVF, fluid restrictions CXR CM, min B/L effusions consider DC Oxcarbazepine (Carbamazepine) f/u electrolytes Nutritional Asmnt/Malnutr-PDOC - Dietary Evaluation Malnutrition Findings (Please click <Entered> for more info): Nutritional Asmnt/Malnutrition Start: 10/12/18 16: 40 Text: Status: Complete Freq: Protocol: Document 10/12/18 16:41 DAMON (Rec: 10/12/18 17:03 [email or web address] [id number]) Nutritional Asmnt/Malnutrition Patient General Information Nutritional Screening High Risk Diagnosis seizure disorder, electrolyte imbalance Pertinent Medical Hx/Surgical Hx COPD, HTN, obesity, DJD, chronic pain syndrome, sleep apnea, psychotic disorder Subjective Information Pt seen sitting up in bed at time of visit, eating lunch, alert. RD spoke with pt who states he doesn't eat vegetables. RD explain benefits of vegetable intake and encouraged pt to eat them. RN states pt finished 100% of meals today. Per nurse note, pt placed on nasal cannula and will use bipap PRN. Current Diet Order/ Nutrition Support regular Pertinent Medications D5-0.9%Ns, colace, lasix, morphine, protonix, Hypertonic 3% Pertinent Labs 10/12: Na 130, Cl 91, Cr 0.5, glucose 121, Alb 3.7 10/11: Na 128, Cl 89, Cr 0.5, glucose 103, Alb 3.5 Nutritional Hx/Data Height 1.7 m Height (Calculated Centimeters) 170.2 Current Weight (lbs) 124.908 kg Weight (Calculated Kilograms) 124.9 Weight (Calculated Grams) 190441.0 [place] Body Weight 148 lb Body Mass Index (BMI) 43.1 Weight Status Morbidly Obese GI Symptoms GI Symptoms None Last BM 10/11 x 2 Difficult in: None Food Allergies No Skin Integrity/Comment: dryness, area of concern, betsey 14 Current %PO Good (75-100%) Estimated Nutritional Goals BEE in Kcals: Adj wt of IBW Calories/Kcals/Kg 25-30 (based on adj wt 81.8 kg ) Kcals Calculated 2975-1216 Protein: Adj wt of IBW Protein g/k.8-1 Protein Calculated 65-82 g Fluid: ml 6358-6451 (1 ml/kcal) Nutritional Problem 1. Problem Problem Altered nutrition related lab values Etiology electrolyte imbalance Signs/Symptoms: Na 130, Cl 91 Malnutrition Alert Is there a minimum of two criteria No selected? Query Text:Check all the applicable criteria. A minimum of two criteria are recommended for diagnosis of either severe or non-severe malnutrition. Intervention/Recommendation Comments 1. Continue with regular diet as ordered. Diet preference updated 2. Monitor PO intake, wt, labs and skin integrity 3. F/U as moderate risk in 3-5 days, 10/15- Expected Outcomes/Goals Expected Outcomes/Goals 1. PO intake to continue meeting at least 75% of all meals 2. Wt stability, skin to remain intact, nutrition related labs to approach normal limits Reviewed by Tessa Newman RD
--- NOTE | 2018-10-13 16:04 | Progress Notes ---
DATE: 10/13/2018 PROBLEM LIST: 1. Acute respiratory failure secondary to asthmatic bronchitis. 2. Chronic obstructive pulmonary disease. 3. Suspect sleep apnea syndrome. 4. Elevated ammonia exact etiology is not clearcut. SYMPTOMS: The patient is feeling much better. No coughing. No wheezing. Tolerated nasal cannula pretty well. PHYSICAL EXAMINATION: VITAL SIGNS: Temperature is about 97.4, blood pressure is 156/80, saturation is mid 90s on 4 liters per minute. NECK: Veins not visualized. CHEST: Shows diminished air entry with occasional secretory noise. ABDOMEN: Soft and nontender. EXTREMITIES: Shows no peripheral edema. LABORATORY DATA: White count is 13,000 and hemoglobin is 13.3.: ABG shows compensated respiratory acidemia on 36% of oxygen with pH of 7.47, pCO2 of 51, pO2 of 62. Electrolytes are okay except for sodium 131. ASSESSMENT AND PLAN: The patient overall doing much better with resolving acute on chronic respiratory failure with severe obstructive sleep apnea syndrome with also morbid obesity, obesity hypoventilation syndrome. PLANS AND SUGGESTIONS: 1. Consideration for discontinuation of valproic acid. 2. Continue BiPAP at night time. Continue breathing treatment. Hopefully, if he is stable, may be another day or two, possibly discharge planning. JOB# [id number]
--- NOTE | 2018-10-13 21:22 | Progress Notes ---
DATE: 10/13/2018 SUBJECTIVE: The patient seen and examined. The patient is alert, awake and oriented. The patient denies any chest pain, increasing shortness of breath, palpitation, dizziness, nausea, or headache. PHYSICAL EXAMINATION: VITAL SIGNS: Temperature 97.5, pulse is 77, respiratory rate 21, blood pressure 125/53. HEENT: No facial asymmetry. NECK: Supple, no JVD. HEART: Regular. CHEST: Lung equal in expansion with expiratory wheezing throughout. ABDOMEN: Soft. No guarding, no rigidity. Bowel sounds are present. No palpable mass. EXTREMITIES: No edema. CLINICAL IMPRESSION: 1. Encephalopathy, hypoxemia and metabolic has significantly improved. 2. Bilateral pneumonia. 3. Acute on chronic respiratory failure, improving. 4. Hyponatremia, improved. 5. Obesity. 6. Chronic pain syndrome. 7. Degenerative joint disease. 8. Hepatic encephalopathy. 9. Seizure disorder. PLAN: 1. Met telemetry status. 2. Oxygen. 3. Nebulizer treatment. 4. P.r.n. BiPAP. 5. General nursing care. 6. IV steroids. 7. Pain management. 8. PT, OT. 9. Follow lab. 10. Follow consult recommendation. 11. Care plan reviewed and discussed with staff. JOB# [id number]
[2018-10-14] MEDS: methylPREDNISolone SS 40 mg Vial IVP SCH ×3 (00:08→11:16)
[2018-10-14] MEDS: Guaifenesin DM 10 ML UDC PO PRN ×3 (05:31→20:06)
[2018-10-14 06:41] LABS: HEMATOCRIT 42.1 % (41.0-60); HEMOGLOBIN 14.1 gm/dL (12-16); MEAN CELL VOLUME 81.5 fl (80-99); MEAN CORPUSCULAR HEMOGLOBIN 27.2 pg (26.0-30.0); MEAN CORPUSCULAR HGB CONC 33.4 pg (28.0-36.0); MEAN PLATELET VOLUME 6.7 fl; PLATELET COUNT 217 Th/cmm (150-400); RED BLOOD COUNT 5.17 Mil/cmm (4.30-5.70); RED CELL DISTRIBUTION WIDTH 16.7 % (11.5-20.0); WHITE BLOOD COUNT 10.7 Th/cmm (4.8-10.8)
[2018-10-14] MEDS: Pantoprazole 40 mg EC Tab PO SCH (06:51)
[2018-10-14] MEDS: Albuterol/Ipratropium Neb 3 ML AERS HHN SCH ×4 (06:53→18:56)
[2018-10-14 07:04] LABS: ALB/GLOB RATIO 1.4 (1.0-1.8); ALBUMIN 3.6 gm/dL (4.2-5.5); ALKALINE PHOSPHATASE 74 U/L (34-104); ANION GAP 11.8 (7.0-16.0); BILIRUBIN,TOTAL 0.4 mg/dL (0.3-1.0); BUN - UREA NITROGEN 20 mg/dL (7-25); CALCIUM SERUM 9.3 mg/dL (8.6-10.3); CARBON DIOXIDE 32.5 mEq/L (21.0-31.0); CHLORIDE 94 mEq/L (98-107); CREATININE - SERUM 0.5 mg/dL (0.7-1.3); GFR AFRICAN-AMERICAN > 60.0 ml/min (>90); GFR NON AFRICAN-AMERICAN > 60.0 ml/min; GLUCOSE 124 mg/dL (70-105); POTASSIUM SERUM 4.3 mEq/L (3.5-5.1); SGOT 11 U/L (13-39); SGPT/ALT 10 U/L (7-52); SODIUM SERUM 134 mEq/L (136-145); TOTAL PROTEIN,SERUM 6.1 gm/dL (6.0-8.3); URIC ACID 3.9 mg/dL (4.4-7.6)
[2018-10-14] MEDS: Budesonide 0.5 Mg/2 mL Ud HHN SCH ×2 (07:06→18:56)
[2018-10-14] MEDS: Lactulose 10 Gm/15 mL 30mL UDC PO SCH ×3 (09:42→20:16)
[2018-10-14] MEDS: Azithromycin 500 MG in Sodium Chloride 0.9% 250 ML IV SCH (10:37)
[2018-10-14 11:39] LABS: NEUTROPHILS 82 % (40-80)
[2018-10-14 11:40] LABS: BAND NEUTROPHILE 1 % (0-10); LYMPHOCYTE 13 % (20-50); MONOCYTE 4 % (2-10)
--- NOTE | 2018-10-14 14:16 | General Progress Note ---
Subjective - Review of Systems Service Date: 10/14/18 Subjective: alert, verbal, not in distress, interactive Objective - Results Result Diagrams: 10/14/18 05:50 10/14/18 05:50 Recent Labs: Laboratory Last Values WBC 10.7 Th/cmm (4.8-10.8) 10/14/18 05:50 RBC 5.17 Mil/cmm (4.30-5.70) 10/14/18 05:50 Hgb 14.1 gm/dL (12-16) 10/14/18 05:50 Hct 42.1 % (41.0-60) 10/14/18 05:50 MCV 81.5 fl (80-99) 10/14/18 05:50 MCH 27.2 pg (26.0-30.0) 10/14/18 05:50 MCHC Differential 33.4 pg (28.0-36.0) 10/14/18 05:50 RDW 16.7 % (11.5-20.0) 10/14/18 05:50 Plt Count 217 Th/cmm (150-400) 10/14/18 05:50 MPV 6.7 fl 10/14/18 05:50 Add Manual Diff YES 10/14/18 05:50 Neutrophils % [employer]UDIT [employer]ERKS [employer]PERVIS[employer] 10/14/18 05:50 Band Neutrophils % 1 % (0-10) 10/14/18 05:50 Lymphocytes % AUDIT CLERKS SUPERVISOR 10/14/18 05:50 Monocytes % AUDIT CLERKS SUPERVISOR 10/14/18 05:50 Eosinophils % AUDIT CLERKS SUPERVISOR 10/14/18 05:50 Basophils % AUDIT CLERKS SUPERVISOR 10/14/18 05:50 Neutrophils (Manual) 82 % (40-80) H 10/14/18 05:50 Lymphocytes 13 % (20-50) L 10/14/18 05:50 Monocytes 4 % (2-10) 10/14/18 05:50 Eosinophils 0 % (0-5) 10/12/18 04:05 Basophils 0 % (0-3) 10/12/18 04:05 Specimen Source Arterial 10/13/18 09:57 Sample Site Right Radial 10/13/18 09:57 pH 7.47 (7.35-7.45) H 10/13/18 09:57 pCO2 51.0 mmHg (35.0-45.0) H 10/13/18 09:57 pO2 62.0 mmHg (80.0-100.0) L 10/13/18 09:57 HCO3 33.9 mEq/L (20.0-26.0) H 10/13/18 09:57 Base Excess 11.6 mEq/L (-3.0-3.0) H 10/13/18 09:57 O2 Saturation 93.0 % (92.0-100.0) 10/13/18 09:57 Mahesh Test Positive 10/13/18 09:57 Vent Rate NA 10/13/18 09:57 Inspired O2 36 10/13/18 09:57 Tidal Volume NA 10/13/18 09:57 PEEP NA 10/13/18 09:57 Pressure (ins/psv/peep) NA 10/13/18 09:57 Critical Value LZHANG 10/13/18 09:57 Sodium 134 mEq/L (136-145) L 10/14/18 05:50 Potassium 4.3 mEq/L (3.5-5.1) 10/14/18 05:50 Chloride 94 mEq/L (98-107) L 10/14/18 05:50 Carbon Dioxide 32.5 mEq/L (21.0-31.0) H 10/14/18 05:50 Anion Gap 11.8 (7.0-16.0) 10/14/18 05:50 BUN 20 mg/dL (7-25) 10/14/18 05:50 Creatinine 0.5 mg/dL (0.7-1.3) L 10/14/18 05:50 Est GFR ( Amer) > 60.0 ml/min (>90) 10/14/18 05:50 Est GFR (Non-Af Amer) > 60.0 ml/min 10/14/18 05:50 BUN/Creatinine Ratio 40.0 10/14/18 05:50 Glucose 124 mg/dL (70-105) H 10/14/18 05:50 Plasma/Ser Osmolality 256 mOsmol/kg (280-301) L 10/10/18 13:53 Uric Acid 3.9 mg/dL (4.4-7.6) L 10/14/18 05:50 Calcium 9.3 mg/dL (8.6-10.3) 10/14/18 05:50 Magnesium 2.0 mg/dL (1.9-2.7) 10/12/18 04:05 Total Bilirubin 0.4 mg/dL (0.3-1.0) 10/14/18 05:50 Direct Bilirubin 0.06 mg/dL (0.0-0.2) 10/13/18 04:25 AST 11 U/L (13-39) L 10/14/18 05:50 ALT 10 U/L (7-52) 10/14/18 05:50 Alkaline Phosphatase 74 U/L (34-104) 10/14/18 05:50 Ammonia 59 umol/L (16-53) H 10/14/18 05:50 Troponin I 0.01 ng/mL (0.01-0.05) 10/10/18 10:20 Total Protein 6.1 gm/dL (6.0-8.3) 10/14/18 05:50 Albumin 3.6 gm/dL (4.2-5.5) L 10/14/18 05:50 Globulin 2.5 gm/dL 10/14/18 05:50 Albumin/Globulin Ratio 1.4 (1.0-1.8) 10/14/18 05:50 Triglycerides 94 mg/dL (<150) 10/11/18 06:31 Cholesterol 137 mg/dL (<200) 10/11/18 06:31 LDL Cholesterol Direct 87 mg/dL (75-193) 10/11/18 06:31 HDL Cholesterol 41 mg/dL (23-92) 10/11/18 06:31 TSH 0.56 uIU/ml (0.34-5.60) 10/10/18 10:20 Urine Source CLEAN C 10/11/18 06:28 Urine Color PALE YELLOW 10/11/18 06:28 Urine Clarity CLEAR (CLEAR) 10/11/18 06:28 Urine pH 6.5 (4.6 - 8.0) 10/11/18 06:28 Ur Specific [place] 1.010 (1.005-1.030) 10/11/18 06:28 Urine Protein NEGATIVE mg/dL (NEGATIVE) 10/11/18 06:28 Urine Glucose (UA) NEGATIVE mg/dL (NEGATIVE) 10/11/18 06:28 Urine Ketones NEGATIVE mg/dL (NEGATIVE) 10/11/18 06:28 Urine Blood NEGATIVE (NEGATIVE) 10/11/18 06:28 Urine Nitrate NEGATIVE (NEGATIVE) 10/11/18 06:28 Urine Bilirubin NEGATIVE (NEGATIVE) 10/11/18 06:28 Urine Urobilinogen 0.2 E.U./dL (0.2 - 1.0) 10/11/18 06:28 Ur Leukocyte Esterase NEGATIVE (NEGATIVE) 10/11/18 06:28 Urine Osmolality 271 mOsmol/kg 10/11/18 00:10 Ur Random Sodium 64 mmol/L 10/11/18 00:10 Urine Creatinine 26.0 mg/dl (39.0-259.0) L 10/11/18 00:10 Urine Opiates Screen POSITIVE (NEGATIVE) H 10/11/18 00:10 Urine Methadone Screen NEGATIVE (NEGATIVE) 10/11/18 00:10 Ur Barbiturates Screen NEGATIVE (NEGATIVE) 10/11/18 00:10 Valproic Acid 43.0 ug/mL (50.0-100.0) L 10/10/18 10:59 Ur Tricyclics Screen NEGATIVE (NEGATIVE) 10/11/18 00:10 Ur Phencyclidine Scrn NEGATIVE (NEGATIVE) 10/11/18 00:10 Amphetamines Screen NEGATIVE (NEGATIVE) 10/11/18 00:10 U Methamphetamines Scrn NEGATIVE (NEGATIVE) 10/11/18 00:10 U Benzodiazepines Scrn POSITIVE (NEGATIVE) H 10/11/18 00:10 U Cocaine Metab Screen NEGATIVE (NEGATIVE) 10/11/18 00:10 U Cannabinoids Screen NEGATIVE (NEGATIVE) 10/11/18 00:10 RPR NONREACTIVE (NONREACTIVE) 10/10/18 10:20 - Physical Exam Vitals and I&O: Vital Signs Temp 97.9 F 10/14/18 11:53 Pulse 82 10/14/18 14:07 Resp 15 10/14/18 14:07 BP 173/83 10/14/18 11:53 Pulse Ox 95 10/14/18 14:07 Intake & Output 10/13/18 10/14/18 10/14/18 18:59 06:59 18:59 Intake Total 2150 300 Output Total 1450 Balance 700 300 Weight (lbs) 124.993 kg 125.191 kg Intake: Intake, IV Amount 250 Azithromycin 500 mg In 250 Sodium Chloride 0.9% 250 ml @ 250 mls/hr IV Q24HR [facility] Rx#:[id number] Oral 1900 300 Output: Urine 1450 Other: # Voids 3 # Bowel Movements 1 0 Stool Characteristics Soft Soft Brown Weight Source Bedscale Bedscale Active Medications: Current Medications Acetaminophen (Tylenol) 650 mg PO Q4H PRN PRN Reason: Mild Pain/Headache/T above 101 Stop: 12/09/18 13:37 Last Admin: 10/12/18 20:38 Dose: 650 mg Albuterol/Ipratropium (Duoneb Neb) 3 ml HHN [id number] [facility] Stop: 12/10/18 18:59 Last Admin: 10/14/18 13:59 Dose: 3 ml Baclofen (Lioresal) 10 mg PO TID [facility] Stop: 12/09/18 13:59 Last Admin: 10/14/18 13:32 Dose: 10 mg Budesonide (Pulmicort) 0.5 mg HHN BIDRT [facility] Stop: 12/10/18 18:59 Last Admin: 10/14/18 07:06 Dose: 0.5 mg Carvedilol (Coreg) 12.5 mg PO BID [facility] Stop: 12/13/18 16:59 Divalproex Sodium (Depakote Dr) 250 mg PO Q12H [facility]; Protocol Stop: 12/09/18 13:44 Last Admin: 10/14/18 13:32 Dose: 250 mg Docusate Sodium (Colace) 250 mg PO BID [facility] Stop: 12/09/18 16:59 Last Admin: 10/14/18 09:42 Dose: Not Given Duloxetine HCl (Cymbalta) 60 mg PO DAILY [facility] Stop: 12/10/18 08:59 Last Admin: 10/14/18 08:36 Dose: 60 mg Furosemide (Lasix) 40 mg PO DAILY [facility] Stop: 12/13/18 08:59 Last Admin: 10/14/18 08:34 Dose: 40 mg Guaifenesin/Dextromethorphan (Robitussin Dm) 10 ml PO Q6HR PRN PRN Reason: Cough Stop: 12/11/18 18:03 Last Admin: 10/14/18 11:58 Dose: 10 ml Azithromycin 500 mg/ Sodium (Chloride) 250 mls @ 250 mls/hr IV Q24HR [facility] Stop: 12/11/18 10:59 Last Admin: 10/14/18 10:37 Dose: 250 mls/hr Lactulose (Cephulac) 30 gm PO TID [facility] Stop: 12/10/18 20:59 Last Admin: 10/14/18 09:42 Dose: Not Given Latanoprost (Xalatan 0.005% Ophth Soln) 1 drop EACH EYE HS [facility] Stop: 12/09/18 20:59 Last Admin: 10/13/18 20:28 Dose: 1 drop Levetiracetam (Keppra) 1,000 mg PO BID [facility] Stop: 12/09/18 16:59 Last Admin: 10/14/18 08:34 Dose: 1,000 mg Losartan Potassium (Cozaar) 100 mg PO DAILY [facility] Stop: 12/09/18 13:59 Last Admin: 10/14/18 08:35 Dose: 100 mg Magnesium Hydroxide (Milk Of Magnesia) 30 ml PO HS PRN PRN Reason: Constipation Stop: 12/09/18 13:37 Morphine Sulfate (Morphine) 2 mg IVP Q4H PRN PRN Reason: Severe Pain Stop: 12/09/18 13:37 Last Admin: 10/12/18 10:51 Dose: 2 mg Morphine Sulfate (Ms-Contin) 30 mg PO BID@0000,1200 [facility] Stop: 12/10/18 00:00 Last Admin: 10/14/18 11:15 Dose: 30 mg Ondansetron HCl (Zofran) 4 mg IVP Q6H PRN PRN Reason: Nausea / Vomiting Stop: 12/09/18 13:37 Oxcarbazepine (Trileptal) 300 mg PO BID [facility]; Protocol Stop: 12/09/18 16:59 Last Admin: 10/14/18 08:34 Dose: 300 mg Pantoprazole Sodium (Protonix) 40 mg PO QDAC [facility] Stop: 12/10/18 07:29 Last Admin: 10/14/18 06:51 Dose: 40 mg Tamsulosin HCl (Flomax) 0.4 mg PO DAILY [facility] Stop: 12/09/18 13:44 Last Admin: 10/14/18 08:34 Dose: 0.4 mg General: Alert, No acute distress HEENT: Atraumatic, Mucous membr. 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 ALOC 2/2 Hyperammonemia, Pain/epileptic meds, C02 Narcosis Hypercapneic resp failure 2/2 COPD, meds, OHS/MARCE Morbid Obesity Epilepsy Chronic Pain Sx - Plan Plan: Lab - Result Diagrams 10/13/18 04:25 10/13/18 04:25 Current Medications Acetaminophen (Tylenol) 650 mg PO Q4H PRN PRN Reason: Mild Pain/Headache/T above 101 Stop: 12/09/18 13:37 Last Admin: 10/12/18 20:38 Dose: 650 mg Albuterol/Ipratropium (Duoneb Neb) 3 ml HHN [id number] [facility] Stop: 12/10/18 18:59 Last Admin: 10/13/18 10:22 Dose: 3 ml Baclofen (Lioresal) 10 mg PO TID [facility] Stop: 12/09/18 13:59 Last Admin: 10/13/18 13:08 Dose: 10 mg Budesonide (Pulmicort) 0.5 mg HHN BIDRT [facility] Stop: 12/10/18 18:59 Last Admin: 10/13/18 07:29 Dose: 0.5 mg Carvedilol (Coreg) 6.25 mg PO BID [facility] Stop: 12/09/18 16:59 Last Admin: 10/13/18 08:16 Dose: 6.25 mg Divalproex Sodium (Depakote Dr) 250 mg PO Q12H [facility]; Protocol Stop: 12/09/18 13:44 Last Admin: 10/13/18 13:08 Dose: 250 mg Docusate Sodium (Colace) 250 mg PO BID [facility] Stop: 12/09/18 16:59 Last Admin: 10/13/18 08:16 Dose: Not Given Duloxetine HCl (Cymbalta) 60 mg PO DAILY [facility] Stop: 12/10/18 08:59 Last Admin: 10/13/18 08:15 Dose: 60 mg Furosemide (Lasix) 40 mg IVP BID [facility] Stop: 12/11/18 16:59 Last Admin: 10/13/18 08:16 Dose: 40 mg Guaifenesin/Dextromethorphan (Robitussin Dm) 10 ml PO Q6HR PRN PRN Reason: Cough Stop: 12/11/18 18:03 Last Admin: 10/13/18 08:37 Dose: 10 ml Dextrose/Sodium Chloride (D5-0.9%Ns) 1,000 mls @ 50 mls/hr IV .Q20H [facility] Stop: 12/10/18 12:03 Last Admin: 10/12/18 08:49 Dose: 50 mls/hr Azithromycin 500 mg/ Sodium (Chloride) 250 mls @ 250 mls/hr IV Q24HR [facility] Stop: 12/11/18 10:59 Last Infusion: 10/13/18 11:25 Dose: Infused Lactulose (Cephulac) 30 gm PO TID [facility] Stop: 12/10/18 20:59 Last Admin: 10/13/18 13:09 Dose: 30 gm Latanoprost (Xalatan 0.005% Ophth Soln) 1 drop EACH EYE HS [facility] Stop: 12/09/18 20:59 Last Admin: 10/12/18 20:55 Dose: 1 drop Levetiracetam (Keppra) 1,000 mg PO BID [facility] Stop: 12/09/18 16:59 Last Admin: 10/13/18 08:16 Dose: 1,000 mg Losartan Potassium (Cozaar) 100 mg PO DAILY [facility] Stop: 12/09/18 13:59 Last Admin: 10/13/18 08:15 Dose: 100 mg Magnesium Hydroxide (Milk Of Magnesia) 30 ml PO HS PRN PRN Reason: Constipation Stop: 12/09/18 13:37 Methylprednisolone Sodium Succinate (Solu-Medrol) 40 mg IVP Q6HR [facility] Stop: 10/14/18 12:01 Last Admin: 10/13/18 11:13 Dose: 40 mg Morphine Sulfate (Morphine) 2 mg IVP Q4H PRN PRN Reason: Severe Pain Stop: 12/09/18 13:37 Last Admin: 10/12/18 10:51 Dose: 2 mg Morphine Sulfate (Ms-Contin) 30 mg PO BID@0000,1200 [facility] Stop: 12/10/18 00:00 Last Admin: 10/13/18 11:13 Dose: 30 mg Ondansetron HCl (Zofran) 4 mg IVP Q6H PRN PRN Reason: Nausea / Vomiting Stop: 12/09/18 13:37 Oxcarbazepine (Trileptal) 300 mg PO BID [facility]; Protocol Stop: 12/09/18 16:59 Last Admin: 10/13/18 08:15 Dose: 300 mg Pantoprazole Sodium (Protonix) 40 mg PO QDAC [facility] Stop: 12/10/18 07:29 Last Admin: 10/13/18 06:34 Dose: 40 mg Tamsulosin HCl (Flomax) 0.4 mg PO DAILY [facility] Stop: 12/09/18 13:44 Last Admin: 10/13/18 08:15 Dose: 0.4 mg Lab - Result Diagrams 10/14/18 05:50 10/14/18 05:50 Na up to 134 DC Lasix, IVF, fluid restrictions CXR CM, min B/L effusions consider DC Oxcarbazepine (Carbamazepine) f/u electrolytes, BNP Nutritional Asmnt/Malnutr-PDOC - Dietary Evaluation Malnutrition Findings (Please click <Entered> for more info): Nutritional Asmnt/Malnutrition Start: 10/12/18 16: 40 Text: Status: Complete Freq: Protocol: Document 10/12/18 16:41 DAMON (Rec: 10/12/18 17:03 [email or web address] [id number]) Nutritional Asmnt/Malnutrition Patient General Information Nutritional Screening High Risk Diagnosis seizure disorder, electrolyte imbalance Pertinent Medical Hx/Surgical Hx COPD, HTN, obesity, DJD, chronic pain syndrome, sleep apnea, psychotic disorder Subjective Information Pt seen sitting up in bed at time of visit, eating lunch, alert. RD spoke with pt who states he doesn't eat vegetables. RD explain benefits of vegetable intake and encouraged pt to eat them. RN states pt finished 100% of meals today. Per nurse note, pt placed on nasal cannula and will use bipap PRN. Current Diet Order/ Nutrition Support regular Pertinent Medications D5-0.9%Ns, colace, lasix, morphine, protonix, Hypertonic 3% Pertinent Labs 10/12: Na 130, Cl 91, Cr 0.5, glucose 121, Alb 3.7 10/11: Na 128, Cl 89, Cr 0.5, glucose 103, Alb 3.5 Nutritional Hx/Data Height 1.7 m Height (Calculated Centimeters) 170.2 Current Weight (lbs) 124.908 kg Weight (Calculated Kilograms) 124.9 Weight (Calculated Grams) 439329.0 [place] Body Weight 148 lb Body Mass Index (BMI) 43.1 Weight Status Morbidly Obese GI Symptoms GI Symptoms None Last BM 10/11 x 2 Difficult in: None Food Allergies No Skin Integrity/Comment: dryness, area of concern, betsey Hoffman Current %PO Good (75-100%) Estimated Nutritional Goals BEE in Kcals: Adj wt of IBW Calories/Kcals/Kg 25-30 (based on adj wt 81.8 kg ) Kcals Calculated 4218-5560 Protein: Adj wt of IBW Protein g/k.8-1 Protein Calculated 65-82 g Fluid: ml [id number] (1 ml/kcal) Nutritional Problem 1. Problem Problem Altered nutrition related lab values Etiology electrolyte imbalance Signs/Symptoms: Na 130, Cl 91 Malnutrition Alert Is there a minimum of two criteria No selected? Query Text:Check all the applicable criteria. A minimum of two criteria are recommended for diagnosis of either severe or non-severe malnutrition. Intervention/Recommendation Comments 1. Continue with regular diet as ordered. Diet preference updated 2. Monitor PO intake, wt, labs and skin integrity 3. F/U as moderate risk in 3-5 days, 10/15- Expected Outcomes/Goals Expected Outcomes/Goals 1. PO intake to continue meeting at least 75% of all meals 2. Wt stability, skin to remain intact, nutrition related labs to approach normal limits Reviewed by Tessa Newman RD
--- NOTE | 2018-10-14 14:36 | Progress Notes ---
DATE: 10/14/2018 PULMONARY/CRITICAL PROGRESS NOTE PROBLEM LIST: 1. Acute on chronic respiratory failure. 2. Severe obstructive sleep apnea syndrome with right-sided failure. 3. Morbid obesity with obesity hypoventilation syndrome. 4. Chronic pain syndrome. SYMPTOMS: Nil. The patient is feeling a lot better, was moved to the step-down unit yesterday. No respiratory distress or discomfort or any issues. PHYSICAL EXAMINATION: VITAL SIGNS: Temperature is 97.9, blood pressure is 173/83, and saturation is 95 on 4 liters per minute. NECK: Veins not visualized. CHEST: Shows diminished air entry with occasional rhonchi. HEART: Regular. ABDOMEN: Soft, nontender. EXTREMITIES: Show slight trace of peripheral edema. LABORATORY DATA: White count is 10.7, hemoglobin 14.1. IMPRESSION: The patient clinically respiratory moreno stable, improving. PLANS AND SUGGESTIONS: Continue current treatment and start mobilizing and if it is doable at least in the bedside, etc. and go from there. JOB# [id number]
[2018-10-14] MEDS: Morphine Sulfate 2 mg/mL 1mL Syr IVP PRN ×2 (16:00→20:07)
[2018-10-15] MEDS: Guaifenesin DM 10 ML UDC PO PRN ×2 (02:39→08:25)
[2018-10-15 05:33] LABS: % BASOPHILS 0.4 % (0.0-2.0); % EOSINOPHILS 0.1 % (0.0-5.0); % LYMPHOCYTES 18.7 % (20.0-50.0); % MONOCYTES 10.9 % (2.0-10.0); % NEUTROPHILS 69.9 % (40.0-80.0); HEMATOCRIT 42.9 % (41.0-60); MEAN CELL VOLUME 81.6 fl (80-99); MEAN CORPUSCULAR HEMOGLOBIN 26.6 pg (26.0-30.0); MEAN CORPUSCULAR HGB CONC 32.6 pg (28.0-36.0); MEAN PLATELET VOLUME 6.3 fl; MONOCYTE ABSOLUTE 1.2 Th/cmm (0.3-1.0); NEUTROPHILE ABSOLUTE 7.7 Th/cmm (1.8-8.0); PLATELET COUNT 228 Th/cmm (150-400); RED BLOOD COUNT 5.26 Mil/cmm (4.30-5.70); RED CELL DISTRIBUTION WIDTH 16.6 % (11.5-20.0); WHITE BLOOD COUNT 10.9 Th/cmm (4.8-10.8)
[2018-10-15 06:15] LABS: ALB/GLOB RATIO 1.3 (1.0-1.8); ALBUMIN 3.4 gm/dL (4.2-5.5); ALKALINE PHOSPHATASE 68 U/L (34-104); ANION GAP 10.7 (7.0-16.0); BILIRUBIN,TOTAL 0.4 mg/dL (0.3-1.0); BUN - UREA NITROGEN 25 mg/dL (7-25); CARBON DIOXIDE 33.2 mEq/L (21.0-31.0); CHLORIDE 93 mEq/L (98-107); CREATININE - SERUM 0.6 mg/dL (0.7-1.3); GFR AFRICAN-AMERICAN > 60.0 ml/min (>90); GFR NON AFRICAN-AMERICAN > 60.0 ml/min; GLUCOSE 96 mg/dL (70-105); POTASSIUM SERUM 3.9 mEq/L (3.5-5.1); SGOT 10 U/L (13-39); SGPT/ALT 10 U/L (7-52); SODIUM SERUM 133 mEq/L (136-145)
--- NOTE | 2018-10-15 06:42 | Progress Notes ---
DATE: 10/14/2018 PATIENT'S ID: A 63-year-old male. SUBJECTIVE: The patient seen and examined. The patient is now on telemetry unit. The patient is alert, awake and oriented. The patient has difficulty in walking due to his pain on his both knees. The patient currently denies any chest pain, increasing shortness of breath, palpitation, dizziness, nausea. PHYSICAL EXAMINATION: VITAL SIGNS: Temperature 97.9, pulse 82, respiratory rate 18, blood pressure 173/83. HEENT: No facial asymmetry. NECK: Supple, no JVD. HEART: Regular. CHEST AND LUNGS: Equal in expansion, no expiratory wheezing. ABDOMEN: Soft. No guarding or rigidity. Bowel sounds present. No palpable mass. EXTREMITIES: No edema. AVAILABLE DIAGNOSTIC DATA: White count of 10.7, hemoglobin 14.1, platelet count of 217. Sodium 134, potassium 4.3, chloride 94, BUN and creatinine is 20 and 0.5, glucose of 124. CLINICAL IMPRESSIONS: 1. Encephalopathy, improved. 2. Chronic obstructive pulmonary disease. 3. Pneumonitis. 4. Obesity. 5. Obstructive sleep apnea. 6. Chronic pain syndrome. 7. Degenerative joint disease. 8. Hypertension. 9. Seizure disorder. 10. Benign prostatic hypertrophy. PLAN: 1. Adjust antihypertensive medications to control blood pressure. 2. Continue to provide oxygen, nebulizer treatment, BiPAP along with IV antibiotics. General nursing care, nutritional support and cardiac monitoring. 3. Continue PT and OT as well. Care plan reviewed and discussed with staff. JOB# [id number]
[2018-10-15] MEDS: Budesonide 0.5 Mg/2 mL Ud HHN SCH (06:44)
[2018-10-15] MEDS: Albuterol/Ipratropium Neb 3 ML AERS HHN SCH (06:44)
[2018-10-15] MEDS: Pantoprazole 40 mg EC Tab PO SCH (07:06)
[2018-10-15] MEDS: Lactulose 10 Gm/15 mL 30mL UDC PO SCH (11:41)
--- NOTE | 2018-10-15 12:18 | General Progress Note ---
Subjective - Review of Systems Service Date: 10/15/18 Subjective: alert, verbal, not in distress, interactive Objective - Results Result Diagrams: 10/15/18 04:46 10/15/18 04:46 Recent Labs: Laboratory Last Values WBC 10.9 Th/cmm (4.8-10.8) H 10/15/18 04:46 RBC 5.26 Mil/cmm (4.30-5.70) 10/15/18 04:46 Hgb 14.0 gm/dL (12-16) 10/15/18 04:46 Hct 42.9 % (41.0-60) 10/15/18 04:46 MCV 81.6 fl (80-99) 10/15/18 04:46 MCH 26.6 pg (26.0-30.0) 10/15/18 04:46 MCHC Differential 32.6 pg (28.0-36.0) 10/15/18 04:46 RDW 16.6 % (11.5-20.0) 10/15/18 04:46 Plt Count 228 Th/cmm (150-400) 10/15/18 04:46 MPV 6.3 fl 10/15/18 04:46 Add Manual Diff YES 10/14/18 05:50 Neutrophils % 69.9 % (40.0-80.0) 10/15/18 04:46 Band Neutrophils % 1 % (0-10) 10/14/18 05:50 Lymphocytes % 18.7 % (20.0-50.0) L 10/15/18 04:46 Monocytes % 10.9 % (2.0-10.0) H 10/15/18 04:46 Eosinophils % 0.1 % (0.0-5.0) 10/15/18 04:46 Basophils % 0.4 % (0.0-2.0) 10/15/18 04:46 Neutrophils (Manual) 82 % (40-80) H 10/14/18 05:50 Lymphocytes 13 % (20-50) L 10/14/18 05:50 Monocytes 4 % (2-10) 10/14/18 05:50 Eosinophils 0 % (0-5) 10/12/18 04:05 Basophils 0 % (0-3) 10/12/18 04:05 Specimen Source Arterial 10/13/18 09:57 Sample Site Right Radial 10/13/18 09:57 pH 7.47 (7.35-7.45) H 10/13/18 09:57 pCO2 51.0 mmHg (35.0-45.0) H 10/13/18 09:57 pO2 62.0 mmHg (80.0-100.0) L 10/13/18 09:57 HCO3 33.9 mEq/L (20.0-26.0) H 10/13/18 09:57 Base Excess 11.6 mEq/L (-3.0-3.0) H 10/13/18 09:57 O2 Saturation 93.0 % (92.0-100.0) 10/13/18 09:57 Mahesh Test Positive 10/13/18 09:57 Vent Rate NA 10/13/18 09:57 Inspired O2 36 10/13/18 09:57 Tidal Volume NA 10/13/18 09:57 PEEP NA 10/13/18 09:57 Pressure (ins/psv/peep) NA 10/13/18 09:57 Critical Value LZHANG 10/13/18 09:57 Sodium 133 mEq/L (136-145) L 10/15/18 04:46 Potassium 3.9 mEq/L (3.5-5.1) 10/15/18 04:46 Chloride 93 mEq/L (98-107) L 10/15/18 04:46 Carbon Dioxide 33.2 mEq/L (21.0-31.0) H 10/15/18 04:46 Anion Gap 10.7 (7.0-16.0) 10/15/18 04:46 BUN 25 mg/dL (7-25) 10/15/18 04:46 Creatinine 0.6 mg/dL (0.7-1.3) L 10/15/18 04:46 Est GFR ( Amer) > 60.0 ml/min (>90) 10/15/18 04:46 Est GFR (Non-Af Amer) > 60.0 ml/min 10/15/18 04:46 BUN/Creatinine Ratio 41.7 10/15/18 04:46 Glucose 96 mg/dL (70-105) 10/15/18 04:46 Plasma/Ser Osmolality 256 mOsmol/kg (280-301) L 10/10/18 13:53 Uric Acid 3.9 mg/dL (4.4-7.6) L 10/14/18 05:50 Calcium 9.0 mg/dL (8.6-10.3) 10/15/18 04:46 Magnesium 2.0 mg/dL (1.9-2.7) 10/12/18 04:05 Total Bilirubin 0.4 mg/dL (0.3-1.0) 10/15/18 04:46 Direct Bilirubin 0.06 mg/dL (0.0-0.2) 10/13/18 04:25 AST 10 U/L (13-39) L 10/15/18 04:46 ALT 10 U/L (7-52) 10/15/18 04:46 Alkaline Phosphatase 68 U/L (34-104) 10/15/18 04:46 Ammonia 59 umol/L (16-53) H 10/14/18 05:50 Troponin I 0.01 ng/mL (0.01-0.05) 10/10/18 10:20 B-Natriuretic Peptide 53.8 pg/mL (5.0-100.0) 10/15/18 04:46 Total Protein 6.0 gm/dL (6.0-8.3) 10/15/18 04:46 Albumin 3.4 gm/dL (4.2-5.5) L 10/15/18 04:46 Globulin 2.6 gm/dL 10/15/18 04:46 Albumin/Globulin Ratio 1.3 (1.0-1.8) 10/15/18 04:46 Triglycerides 94 mg/dL (<150) 10/11/18 06:31 Cholesterol 137 mg/dL (<200) 10/11/18 06:31 LDL Cholesterol Direct 87 mg/dL (75-193) 10/11/18 06:31 HDL Cholesterol 41 mg/dL (23-92) 10/11/18 06:31 TSH 0.56 uIU/ml (0.34-5.60) 10/10/18 10:20 Urine Source CLEAN C 10/11/18 06:28 Urine Color PALE YELLOW 10/11/18 06:28 Urine Clarity CLEAR (CLEAR) 10/11/18 06:28 Urine pH 6.5 (4.6 - 8.0) 10/11/18 06:28 Ur Specific [place] 1.010 (1.005-1.030) 10/11/18 06:28 Urine Protein NEGATIVE mg/dL (NEGATIVE) 10/11/18 06:28 Urine Glucose (UA) NEGATIVE mg/dL (NEGATIVE) 10/11/18 06:28 Urine Ketones NEGATIVE mg/dL (NEGATIVE) 10/11/18 06:28 Urine Blood NEGATIVE (NEGATIVE) 10/11/18 06:28 Urine Nitrate NEGATIVE (NEGATIVE) 10/11/18 06:28 Urine Bilirubin NEGATIVE (NEGATIVE) 10/11/18 06:28 Urine Urobilinogen 0.2 E.U./dL (0.2 - 1.0) 10/11/18 06:28 Ur Leukocyte Esterase NEGATIVE (NEGATIVE) 10/11/18 06:28 Urine Osmolality 271 mOsmol/kg 10/11/18 00:10 Ur Random Sodium 64 mmol/L 10/11/18 00:10 Urine Creatinine 26.0 mg/dl (39.0-259.0) L 10/11/18 00:10 Urine Opiates Screen POSITIVE (NEGATIVE) H 10/11/18 00:10 Urine Methadone Screen NEGATIVE (NEGATIVE) 10/11/18 00:10 Ur Barbiturates Screen NEGATIVE (NEGATIVE) 10/11/18 00:10 Valproic Acid 43.0 ug/mL (50.0-100.0) L 10/10/18 10:59 Ur Tricyclics Screen NEGATIVE (NEGATIVE) 10/11/18 00:10 Levetiracetam 30.7 ug/mL (10.0-40.0) 10/10/18 10:20 Ur Phencyclidine Scrn NEGATIVE (NEGATIVE) 10/11/18 00:10 Amphetamines Screen NEGATIVE (NEGATIVE) 10/11/18 00:10 U Methamphetamines Scrn NEGATIVE (NEGATIVE) 10/11/18 00:10 U Benzodiazepines Scrn POSITIVE (NEGATIVE) H 10/11/18 00:10 U Cocaine Metab Screen NEGATIVE (NEGATIVE) 10/11/18 00:10 U Cannabinoids Screen NEGATIVE (NEGATIVE) 10/11/18 00:10 RPR NONREACTIVE (NONREACTIVE) 10/10/18 10:20 - Physical Exam Vitals and I&O: Vital Signs Temp 98.7 F 10/15/18 11:13 Pulse 61 10/15/18 11:13 Resp 18 10/15/18 11:13 BP 140/72 10/15/18 11:13 Pulse Ox 95 10/15/18 11:13 Intake & Output 10/14/18 10/15/18 10/15/18 18:59 06:59 18:59 Intake Total 800 250 Output Total 650 Balance 800 -400 Weight (lbs) 125.191 kg 125.191 kg Intake: Oral 800 250 Output: Urine 650 Other: # Voids 1,600 # Bowel Movements 0 Stool Characteristics Soft Soft Weight Source Bedscale Bedscale Active Medications: Current Medications Acetaminophen (Tylenol) 650 mg PO Q4H PRN PRN Reason: Mild Pain/Headache/T above 101 Stop: 12/09/18 13:37 Last Admin: 10/12/18 20:38 Dose: 650 mg Albuterol/Ipratropium (Duoneb Neb) 3 ml HHN [id number] [facility] Stop: 12/10/18 18:59 Last Admin: 10/15/18 06:44 Dose: 3 ml Baclofen (Lioresal) 10 mg PO TID [facility] Stop: 12/09/18 13:59 Last Admin: 10/15/18 08:21 Dose: 10 mg Budesonide (Pulmicort) 0.5 mg HHN BIDRT [facility] Stop: 12/10/18 18:59 Last Admin: 10/15/18 06:44 Dose: 0.5 mg Carvedilol (Coreg) 12.5 mg PO BID [facility] Stop: 12/13/18 16:59 Last Admin: 10/15/18 08:20 Dose: 12.5 mg Divalproex Sodium (Depakote Dr) 250 mg PO Q12H [facility]; Protocol Stop: 12/09/18 13:44 Last Admin: 10/15/18 01:41 Dose: 250 mg Docusate Sodium (Colace) 250 mg PO BID [facility] Stop: 12/09/18 16:59 Last Admin: 10/15/18 08:19 Dose: 250 mg Duloxetine HCl (Cymbalta) 60 mg PO DAILY [facility] Stop: 12/10/18 08:59 Last Admin: 10/15/18 08:17 Dose: 60 mg Furosemide (Lasix) 40 mg PO DAILY [facility] Stop: 12/13/18 08:59 Last Admin: 10/15/18 08:21 Dose: 40 mg Guaifenesin/Dextromethorphan (Robitussin Dm) 10 ml PO Q6HR PRN PRN Reason: Cough Stop: 12/11/18 18:03 Last Admin: 10/15/18 08:25 Dose: 10 ml Lactulose (Cephulac) 30 gm PO TID [facility] Stop: 12/10/18 20:59 Last Admin: 10/15/18 11:41 Dose: Not Given Latanoprost (Xalatan 0.005% Oph Soln) 1 drop EACH EYE HS [facility] Stop: 12/09/18 20:59 Last Admin: 10/14/18 20:22 Dose: 1 drop Levetiracetam (Keppra) 1,000 mg PO BID [facility] Stop: 12/09/18 16:59 Last Admin: 10/15/18 08:19 Dose: 1,000 mg Levofloxacin (Levaquin) 500 mg PO DAILY [facility] Stop: 12/15/18 08:59 Losartan Potassium (Cozaar) 100 mg PO DAILY [facility] Stop: 12/09/18 13:59 Last Admin: 10/15/18 08:17 Dose: 100 mg Magnesium Hydroxide (Milk Of Magnesia) 30 ml PO HS PRN PRN Reason: Constipation Stop: 12/09/18 13:37 Morphine Sulfate (Morphine) 2 mg IVP Q4H PRN PRN Reason: Severe Pain Stop: 12/09/18 13:37 Last Admin: 10/14/18 20:07 Dose: 2 mg Morphine Sulfate (Ms-Contin) 30 mg PO BID@0000,1200 [facility] Stop: 12/10/18 00:00 Last Admin: 10/15/18 11:44 Dose: 30 mg Ondansetron HCl (Zofran) 4 mg IVP Q6H PRN PRN Reason: Nausea / Vomiting Stop: 12/09/18 13:37 Oxcarbazepine (Trileptal) 300 mg PO BID [facility]; Protocol Stop: 12/09/18 16:59 Last Admin: 10/15/18 08:19 Dose: 300 mg Pantoprazole Sodium (Protonix) 40 mg PO QDAC [facility] Stop: 12/10/18 07:29 Last Admin: 10/15/18 07:06 Dose: 40 mg Tamsulosin HCl (Flomax) 0.4 mg PO DAILY [facility] Stop: 12/09/18 13:44 Last Admin: 10/15/18 08:17 Dose: 0.4 mg General: Alert, No acute distress HEENT: Atraumatic, Mucous membr. 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 ALOC 2/2 Hyperammonemia, Pain/epileptic meds, C02 Narcosis Hypercapneic resp failure 2/2 COPD, meds, OHS/MARCE Morbid Obesity Epilepsy Chronic Pain Sx - Plan Plan: Lab - Result Diagrams 10/13/18 04:25 10/13/18 04:25 Current Medications Acetaminophen (Tylenol) 650 mg PO Q4H PRN PRN Reason: Mild Pain/Headache/T above 101 Stop: 12/09/18 13:37 Last Admin: 10/12/18 20:38 Dose: 650 mg Albuterol/Ipratropium (Duoneb Neb) 3 ml HHN [id number] [facility] Stop: 12/10/18 18:59 Last Admin: 10/13/18 10:22 Dose: 3 ml Baclofen (Lioresal) 10 mg PO TID [facility] Stop: 12/09/18 13:59 Last Admin: 10/13/18 13:08 Dose: 10 mg Budesonide (Pulmicort) 0.5 mg HHN BIDRT [facility] Stop: 12/10/18 18:59 Last Admin: 10/13/18 07:29 Dose: 0.5 mg Carvedilol (Coreg) 6.25 mg PO BID [facility] Stop: 12/09/18 16:59 Last Admin: 10/13/18 08:16 Dose: 6.25 mg Divalproex Sodium (Depakote Dr) 250 mg PO Q12H [facility]; Protocol Stop: 12/09/18 13:44 Last Admin: 10/13/18 13:08 Dose: 250 mg Docusate Sodium (Colace) 250 mg PO BID [facility] Stop: 12/09/18 16:59 Last Admin: 10/13/18 08:16 Dose: Not Given Duloxetine HCl (Cymbalta) 60 mg PO DAILY [facility] Stop: 12/10/18 08:59 Last Admin: 10/13/18 08:15 Dose: 60 mg Furosemide (Lasix) 40 mg IVP BID [facility] Stop: 12/11/18 16:59 Last Admin: 10/13/18 08:16 Dose: 40 mg Guaifenesin/Dextromethorphan (Robitussin Dm) 10 ml PO Q6HR PRN PRN Reason: Cough Stop: 12/11/18 18:03 Last Admin: 10/13/18 08:37 Dose: 10 ml Dextrose/Sodium Chloride (D5-0.9%Ns) 1,000 mls @ 50 mls/hr IV .Q20H [facility] Stop: 12/10/18 12:03 Last Admin: 10/12/18 08:49 Dose: 50 mls/hr Azithromycin 500 mg/ Sodium (Chloride) 250 mls @ 250 mls/hr IV Q24HR [facility] Stop: 12/11/18 10:59 Last Infusion: 10/13/18 11:25 Dose: Infused Lactulose (Cephulac) 30 gm PO TID [facility] Stop: 12/10/18 20:59 Last Admin: 10/13/18 13:09 Dose: 30 gm Latanoprost (Xalatan 0.005% Oph Soln) 1 drop EACH EYE HS [facility] Stop: 12/09/18 20:59 Last Admin: 10/12/18 20:55 Dose: 1 drop Levetiracetam (Keppra) 1,000 mg PO BID [facility] Stop: 12/09/18 16:59 Last Admin: 10/13/18 08:16 Dose: 1,000 mg Losartan Potassium (Cozaar) 100 mg PO DAILY [facility] Stop: 12/09/18 13:59 Last Admin: 10/13/18 08:15 Dose: 100 mg Magnesium Hydroxide (Milk Of Magnesia) 30 ml PO HS PRN PRN Reason: Constipation Stop: 12/09/18 13:37 Methylprednisolone Sodium Succinate (Solu-Medrol) 40 mg IVP Q6HR [facility] Stop: 10/14/18 12:01 Last Admin: 10/13/18 11:13 Dose: 40 mg Morphine Sulfate (Morphine) 2 mg IVP Q4H PRN PRN Reason: Severe Pain Stop: 12/09/18 13:37 Last Admin: 10/12/18 10:51 Dose: 2 mg Morphine Sulfate (Ms-Contin) 30 mg PO BID@0000,1200 [facility] Stop: 12/10/18 00:00 Last Admin: 10/13/18 11:13 Dose: 30 mg Ondansetron HCl (Zofran) 4 mg IVP Q6H PRN PRN Reason: Nausea / Vomiting Stop: 12/09/18 13:37 Oxcarbazepine (Trileptal) 300 mg PO BID [facility]; Protocol Stop: 12/09/18 16:59 Last Admin: 10/13/18 08:15 Dose: 300 mg Pantoprazole Sodium (Protonix) 40 mg PO QDAC [facility] Stop: 12/10/18 07:29 Last Admin: 10/13/18 06:34 Dose: 40 mg Tamsulosin HCl (Flomax) 0.4 mg PO DAILY [facility] Stop: 12/09/18 13:44 Last Admin: 10/13/18 08:15 Dose: 0.4 mg Lab - Result Diagrams 10/15/18 04:46 10/15/18 04:46 Na stable @ 133 DC Lasix, IVF, fluid restrictions CXR CM, min B/L effusions consider DC Oxcarbazepine (Carbamazepine) f/u electrolytes, BNP possible DC to ECF Nutritional Asmnt/Malnutr-PDOC - Dietary Evaluation Malnutrition Findings (Please click <Entered> for more info): Nutritional Asmnt/Malnutrition Start: 10/12/18 16: 40 Text: Status: Complete Freq: Protocol: Document 10/12/18 16:41 DAMON (Rec: 10/12/18 17:03 DAMON [id number]) Nutritional Asmnt/Malnutrition Patient General Information Nutritional Screening High Risk Diagnosis seizure disorder, electrolyte imbalance Pertinent Medical Hx/Surgical Hx COPD, HTN, obesity, DJD, chronic pain syndrome, sleep apnea, psychotic disorder Subjective Information Pt seen sitting up in bed at time of visit, eating lunch, alert. RD spoke with pt who states he doesn't eat vegetables. RD explain benefits of vegetable intake and encouraged pt to eat them. RN states pt finished 100% of meals today. Per nurse note, pt placed on nasal cannula and will use bipap PRN. Current Diet Order/ Nutrition Support regular Pertinent Medications D5-0.9%Ns, colace, lasix, morphine, protonix, Hypertonic 3% Pertinent Labs 10/12: Na 130, Cl 91, Cr 0.5, glucose 121, Alb 3.7 10/11: Na 128, Cl 89, Cr 0.5, glucose 103, Alb 3.5 Nutritional Hx/Data Height 1.7 m Height (Calculated Centimeters) 170.2 Current Weight (lbs) 124.908 kg Weight (Calculated Kilograms) 124.9 Weight (Calculated Grams) 498940.0 [place] Body Weight 148 lb Body Mass Index (BMI) 43.1 Weight Status Morbidly Obese GI Symptoms GI Symptoms None Last BM 10/11 x 2 Difficult in: None Food Allergies No Skin Integrity/Comment: dryness, area of concern, betsey 14 Current %PO Good (75-100%) Estimated Nutritional Goals BEE in Kcals: Adj wt of IBW Calories/Kcals/Kg 25-30 (based on adj wt 81.8 kg ) Kcals Calculated 1388-9457 Protein: Adj wt of IBW Protein g/k.8-1 Protein Calculated 65-82 g Fluid: ml [id number] (1 ml/kcal) Nutritional Problem 1. Problem Problem Altered nutrition related lab values Etiology electrolyte imbalance Signs/Symptoms: Na 130, Cl 91 Malnutrition Alert Is there a minimum of two criteria No selected? Query Text:Check all the applicable criteria. A minimum of two criteria are recommended for diagnosis of either severe or non-severe malnutrition. Intervention/Recommendation Comments 1. Continue with regular diet as ordered. Diet preference updated 2. Monitor PO intake, wt, labs and skin integrity 3. F/U as moderate risk in 3-5 days, 10/15- Expected Outcomes/Goals Expected Outcomes/Goals 1. PO intake to continue meeting at least 75% of all meals 2. Wt stability, skin to remain intact, nutrition related labs to approach normal limits Reviewed by Tessa Newman RD
--- NOTE | 2018-10-15 14:34 | Progress Notes ---
DATE: 10/15/2018 PROBLEM LIST: 1. Acute respiratory failure, improved, now chronic. 2. Chronic obstructive pulmonary disease. 3. Opioid dependence. 4. Sleep apnea syndrome. SYMPTOMS: ____ planning to go home. No respiratory distress, etc. PHYSICAL EXAMINATION: VITAL SIGNS: Temperature is 98.7, heart rate is in the 60s, respiration 18, and saturation 95 on 4 liters. NECK: Veins not visualized. CHEST: Shows diminished air entry. Clinical finding shows diminished air entry with occasional rhonchi. HEART: Regular. ABDOMEN: Soft and nontender. LABORATORY DATA: White count is 10.9. ASSESSMENT: The patient is clinically stable, improving. PLANS AND SUGGESTIONS: Okay for discharge planning, etc. and go from there. Need to have a sleep study and BiPAP down the line. JOB# [id number]
--- NOTE | 2018-10-15 16:24 | Progress Notes ---
DATE: 10/15/2018 PATIENT'S ID: A 63-year-old male. SUBJECTIVE: The patient seen and examined. The patient is lying in the bed. The patient is more alert and awake. The patient denies any chest pain, shortness of breath, palpitation, dizziness. PHYSICAL EXAMINATION: VITAL SIGNS: Temperature 97.9, pulse 64, respiratory rate 18, blood pressure 144/69. HEENT: No facial asymmetry. NECK: Supple, no JVD. HEART: Regular. CHEST: Equal in expansion, no expiratory wheezing. ABDOMEN: Soft. No guarding, no rigidity. Bowel sounds present. No palpable mass. EXTREMITIES: No edema. CLINICAL IMPRESSION: 1. Right lower lobe pneumonia. 2. Chronic obstructive pulmonary disease. 3. Encephalopathy. 4. Obstructive sleep apnea. 5. Chronic pain syndrome. 6. Degenerative joint disease. 7. Hypertension. 8. Seizure disorder. 9. Benign prostatic hypertrophy. 10. Hyponatremia, resolved. 11. Altered mental status secondary to metabolic and hypoxic encephalopathy, resolved. 12. Debility. PLAN: The patient remained hemodynamically stable and we will discharge back this patient to [facility]. The patient will be followed by myself and my nurse practitioner. JOB# [id number]
--- NOTE | 2018-10-15 19:27 | Discharge Summary ---
DATE OF DISCHARGE: 10/15/2018 PRINCIPAL DIAGNOSES: 1. Hyponatremia secondary to syndrome of inappropriate antidiuretic hormone. 2. Altered mental status secondary to hypoxic and metabolic encephalopathy. 3. Right lower lobe pneumonia. 4. Chronic obstructive pulmonary disease exacerbation. 5. Obstructive sleep apnea. 6. Chronic pain syndrome. 7. Obesity. 8. Hypertension. 9. Seizure disorder. 10. 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 11. Debility. 12. Decline in self-care and mobility. 13. Elevated ammonia level. 14. Psychotic disorder. BRIEF STATEMENT FOR THE REASON FOR ADMISSION: A 63-year-old resident of residential sent to Emergency Room for evaluation of elevated blood pressure and altered mental status. The patient was worked up in the Emergency Room, noted to have a sodium of 121. The patient was advised to be admitted in the hospital for further treatment. Please refer to my medical H and P for further information. HOSPITAL COURSE: The patient was admitted to telemetry unit. Workup for hyponatremia was ordered. The patient was started on IV fluid. Nephrology consultation requested. Lactulose was started. Upon further evaluation, it was noted that the patient's mental status completely deteriorated, which required the patient needed to be transferred to ICU. The patient was placed on BiPAP. ABG was done and the patient had CO2 narcosis. Pulmonary consultation was also requested as well. The patient was followed by belling machine operator, myself, and bed laborer. Workup did reveal chest x-ray bilateral, noted to have left lower lobe infiltrate. The patient was placed on IV antibiotic as well. The patient was placed on appropriate home medicine reconciliation as well. Seizure precaution was given. With the treatment plan, the patient's mental status improved. Subsequently, the patient was transferred to telemetry unit. Lactulose was also given in the view of elevated ammonia level. The patient did not have any further worsening of the symptoms. The patient did not have any altered mental status and the patient was alert, awake, and oriented. Decision was made that the patient should be discharged to [facility]. The patient is discharged to [facility] in stable condition. At the time of discharge, all of his medications were reconciled. The patient will be followed by myself and my nurse practitioner as scheduled. JOB# [id number]
== END 2018-10-15 13:00 | DRG 441 ==
LOC: ER 09:58 → MSI 13:20 → ICU 20:00 → TELE 10-13 17:45
PROVIDERS: ADMIT Internal Medicine; ATTEND Internal Medicine
PROC: 5A09357 Assistance with Respiratory Ventilation, Less than 24 Consecutive Hours, Continuous Positive Airway Pressure (ICD-10-PCS; principal; 2018-10-10)
PROC: 5A09357 Assistance with Respiratory Ventilation, Less than 24 Consecutive Hours, Continuous Positive Airway Pressure (ICD-10-PCS; 2018-10-11)
PROC: 5A09357 Assistance with Respiratory Ventilation, Less than 24 Consecutive Hours, Continuous Positive Airway Pressure (ICD-10-PCS; 2018-10-12)
PROC: 5A09357 Assistance with Respiratory Ventilation, Less than 24 Consecutive Hours, Continuous Positive Airway Pressure (ICD-10-PCS; 2018-10-13)
DX: K72.90 Hepatic failure, unspecified without coma (principal); J18.1 Lobar pneumonia, unspecified organism; G93.41 Metabolic encephalopathy; J96.22 Acute and chronic respiratory failure with hypercapnia; E22.2 Syndrome of inappropriate secretion of antidiuretic hormone; G93.1 Anoxic brain damage, not elsewhere classified; Z68.41 Body mass index [BMI] 40.0-44.9, adult; E72.20 Disorder of urea cycle metabolism, unspecified; E66.2 Morbid (severe) obesity with alveolar hypoventilation; J44.1 Chronic obstructive pulmonary disease with (acute) exacerbation; J44.0 Chronic obstructive pulmonary disease with (acute) lower respiratory infection; G89.4 Chronic pain syndrome; E11.9 Type 2 diabetes mellitus without complications; E86.0 Dehydration; G40.909 Epilepsy, unspecified, not intractable, without status epilepticus; F11.10 Opioid abuse, uncomplicated; I10 Essential (primary) hypertension; M17.11 Unilateral primary osteoarthritis, right knee; T42.6X5A Adverse effect of other antiepileptic and sedative-hypnotic drugs, initial encounter; Y92.89 Other specified places as the place of occurrence of the external cause; K21.9 Gastro-esophageal reflux disease without esophagitis; N40.0 Benign prostatic hyperplasia without lower urinary tract symptoms; F29 Unspecified psychosis not due to a substance or known physiological condition; M16.0 Bilateral primary osteoarthritis of hip; Z82.49 Family history of ischemic heart disease and other diseases of the circulatory system; Z83.3 Family history of diabetes mellitus; Z79.899 Other long term (current) drug therapy; Z88.8 Allergy status to other drugs, medicaments and biological substances
CPT/HCPCS: 36415-UA; 36600-90; 71045-TC; 80053-TC; 80061-TC; 80164-TC; 80299-90; 80307; 81003-TC; 82140-TC; 82248-TC; 82570-TC; 82803-TC; 83735-TC; 83880-TC; 83930-90; 83935-90; 84300-TC; 84443-TC; 84484-TC; 84550-TC; 85007-TC; 85025-TC; 86592-TC; 93005; 94640; 94660; 94760; 97530; J0456; J1940; J2270; J2920; J7030; J7131; X3904; Z7610